=== PATIENT | female | born 1950 | race Caucasian/White ===

== ENCOUNTER 2017-04-07 11:35 | Emergency (ER) | payer MEDICARE, BC ==
--- NOTE | 2017-04-07 13:01 | RAD ---
Indication: Headache with eye drooping. CT of the brain was performed without IV contrast. Ventricular structures are midline. No midline shift is noted. The extra-axial spaces are unremarkable. There is no evidence of intracranial mass or hemorrhage. No other high or low density lesions are identified. Mastoid air cells and paranasal sinuses are unremarkable. When compared to previous exam of January 09, 2016 no significant change is noted. IMPRESSION: No intracranial mass or hemorrhage is noted.
--- NOTE | 2017-04-07 13:08 | ED ---
Headache - History Of Current Complaint Chief Complaint: EDEyeProblem Stated Complaint: RT EYE DROOP/SENT BY DR Time Seen by Provider: 04/07/17 12:24 - Allergies/Home Medications Allergies/Adverse Reactions: Allergies Allergy/AdvReac Type Severity Reaction Status Date / Time Cefaclor [From Ceclor] Allergy Diarrhea Verified 04/07/17 11:52 CI Pigment Blue 63 Allergy Diarrhea Verified 04/07/17 11:52 [From Cymbalta] Clindamycin Allergy Diarrhea Verified 04/07/17 11:52 Desvenlafaxine [From Pristiq] Allergy Unknown Verified 04/07/17 11:45 Reaction Details Duloxetine [From Cymbalta] Allergy Diarrhea Verified 04/07/17 11:52 Pregabalin [From Lyrica] Allergy Unknown Verified 04/07/17 11:45 Reaction Details Amoxicillin [From Augmentin] AdvReac Intermediate Nausea Verified 04/07/17 11:45 Clavulanic Acid AdvReac Intermediate Nausea Verified 04/07/17 11:45 [From Augmentin] PMH/Surg Hx/FS Hx/Imm Hx Endocrine/Hematology History: Reports: Hx Thyroid Disease, Hx Unexplained Bleeding - Currently Denies: Hx Anticoagulant Therapy, Hx Blood Disorders, Hx Blood Transfusions, Hx Bone Marrow Disease, Hx Diabetes, Hx Systemic Lupus Erythematosus, Hx Sickle Cell Disease, Hx Anemia, Other Endocrine/Hematological Disorders Cardiovascular History: Denies: Hx Hypercholesterolemia, Hx Hypertension, Hx Pacemaker/ICD Respiratory History: Reports: Hx Seasonal Allergies Denies: Hx Asthma, Hx Chronic Bronchitis, Hx Chronic Obstructive Pulmonary Disease (COPD), Hx Cystic Fibrosis, Hx Lung Cancer, Hx Pleural Effusion, Hx Pneumonia, Hx Pulmonary Edema, Hx Pulmonary Embolism, Hx Sleep Apnea, Other Respiratory Problems/Disorders GI History: Reports: Hx Gastrointestinal Bleed - currently; reason for admission , Other GI Disorders - Occasional severe constipation Denies: Hx Cirrhosis, Hx Crohn's Disease, Hx Diverticulosis, Hx Gall Bladder Disease, Hx Gastroesophageal Reflux Disease, Hx Hiatal Hernia, Hx Irritable Bowel, Hx Jaundice, Hx Obstructive Bowel, Hx Ileostomy, Hx Pyloric Stenosis, Hx Ulcer History: Denies: Hx Acute Renal Failure, Hx Benign Prostatic Hyperplasia, Hx Chronic Renal Failure, Hx Dialysis, Hx Kidney Stones, Hx Renal Disease, Other Problems/Disorders Comment Only: Hx Kidney Infection - Possibly while in college more than 40 years ago. Musculoskeletal History: Reports: Hx Arthritis, Hx Back Problems - congenital spinal stenosis, Hx Bursitis, Hx Fibromyalgia, Hx Orthopedic Injury - right rotator cuff tear, Hx Scoliosis - mild, Hx Tendonitis - hands and feet, Other Musculoskeletal History - chronic pain, finger joints replaced, thumbs fused, mallet finger release. Denies: Hx Congenital Bone Abnormalities, Hx Gout, Hx Osteoporosis Sensory History: Reports: Hx Cataracts - developing, Hx Contacts or Glasses, Hx Hearing Aid, Hx Hearing Problem Denies: Hx Eye Injury, Hx Eye Prosthesis, Hx Glaucoma, Hx Macular Degeneration, Hx Vision Problem, Hx Deafness, Other Sensory Impairments Opthamlomology History: Reports: Hx Cataracts - developing, Hx Contacts or Glasses Denies: Hx Eye Injury, Hx Eye Prosthesis, Hx Glaucoma, Hx Macular Degeneration, Hx Vision Problem, Other Sensory Impairments Neurological History: Reports: Hx Headaches, Hx Migraine Denies: Hx Dementia, Hx Developmental Delay, Hx Seizures, Hx Spinal Cord Injury, Hx Transient Ischemic Attacks (TIA), Other Neuro Impairments/Disorders Psychiatric History: Reports: Hx Anxiety, Hx Depression Denies: Hx Attention Deficit Hyperactivity Disorder, Hx Eating Disorder, Hx Panic Disorder, Hx Post Traumatic Stress Disorder, Hx Inpatient Treatment, Hx Community Mental Health Tx, Hx Schizophrenia, Hx Bipolar Disorder, Hx Suicide Attempt, Hx Substance Abuse, Other Psychiatric Issues/Disorders - Surgical History Surgery Procedure, Year, and Place: hand/joint surgeries x 10 - JOINT REPLACEMENTS & FUSION. lumbar laminectomy - 1999 - IN [place]. toenail surguries- [facility] Hx Anesthesia Reactions: No Infectious Disease History: No Infectious Disease History: Denies: Hx Hepatitis, Hx Human Immunodeficiency Virus (HIV), Hx Tuberculosis , Traveled Outside the [place] in Last 30 Days - Family History Known Family History: Positive: Hypertension - Social History Alcohol Use: None Substance Use Type: Reports: None Substance Use Comment - Amount & Last Used: morphine Smoking Status (MU): Never Smoked Tobacco Have You Smoked in the Last Year: No Physical Exam Vital Signs On Initial Exam: Initial Vitals Temp Pulse Resp BP Pulse Ox 98.4 F 77 16 133/65 99 04/07/17 11:45 04/07/17 11:45 04/07/17 11:45 04/07/17 11:45 04/07/17 11:45 - [place] Coma Scale Coma Scale Total: 15 Diagnostics - Vital Signs Vital Signs Temp Pulse Resp BP Pulse Ox 04/07/17 12:21 97.9 F 71 16 120/70 98 04/07/17 11:45 98.4 F 77 16 133/65 99 - Laboratory Lab Statement: Any lab studies that have been ordered have been reviewed, and results considered in the medical decision making process. - CT brain CT Interpretation: No Acute Changes - No intracranial mass or hemorrhage is noted. CT Interpretation Completed By: Radiologist Discharge - Discharge Plan Condition: Stable Disposition: HOME Patient Education Materials: Ptosis (ED) Referrals: Soni Peter MD [Primary Care Provider] - Additional Instructions: Follow up with PCP and still go to Dr Spencer appointment tomorrow. Appears to be botox related. If new symptoms occur or worsening symptoms,as discussed, please return and seek medical attention immediately.
[2017-04-07 13:42] VITALS: BP 138/64
--- NOTE | 2017-04-07 13:44 | ED ---
Throat Pain/Nasal Congestion - HPI Summary HPI Summary: 66 female presents to ED with complaints of experiencing right eye dropping that began 2 days ago. Patient states she had a typical migraine that she gets chronically 2 days ago however, resolved. She noticed 2 days ago that her right eye lid was somewhat, closed and dropping. Non painful and no itchiness, drainage, or trouble with vision. States it is sometimes hard to see because her eyelid is in the way however has not had any blurred or loss of vision. Patient denies any excessive tearing and nasal drainage on right side. Denies speech slurring and mouth drooping. No other symptoms. IS unable to lift right eyebrow/forehead muscles. Denies recent illness. No other symptoms and no headache currently. Denies nausea/vomiting, weakness, dizziness or lightheadedness. No recent trauma or injury. Patient states she has been getting botox for her migraines for years however just recently has been going to someone different, a pain clinic anesthesiologist, and since has had issues. States she has had bumps and bruises at the area of injections. She still has bruise on forehead, had botox done 2 weeks ago. States they did do the injection close to right eye and forehead and feels that is what has caused the drooping. Was told to get a CT to rule out other etiology. No other complaints at this time. PMHx significant for RA, thyroid disease, fibromyalgia and migraines. - History of Current Complaint Chief Complaint: EDEyeProblem Time Seen by Provider: 04/07/17 12:24 Hx Obtained From: Patient Onset/Duration: Sudden Onset, Lasting Days - 2, Still Present Associated Signs And Symptoms: Positive: Negative Cough: None Related History: Seasonal Allergies - Allergies/Home Medications Allergies/Adverse Reactions: Allergies Allergy/AdvReac Type Severity Reaction Status Date / Time Cefaclor [From Ceclor] Allergy Diarrhea Verified 04/07/17 11:52 CI Pigment Blue 63 Allergy Diarrhea Verified 04/07/17 11:52 [From Cymbalta] Clindamycin Allergy Diarrhea Verified 04/07/17 11:52 Desvenlafaxine [From Pristiq] Allergy Unknown Verified 04/07/17 11:45 Reaction Details Duloxetine [From Cymbalta] Allergy Diarrhea Verified 04/07/17 11:52 Pregabalin [From Lyrica] Allergy Unknown Verified 04/07/17 11:45 Reaction Details Amoxicillin [From Augmentin] AdvReac Intermediate Nausea Verified 04/07/17 11:45 Clavulanic Acid AdvReac Intermediate Nausea Verified 04/07/17 11:45 [From Augmentin] PMH/Surg Hx/FS Hx/Imm Hx Endocrine/Hematology History: Reports: Hx Thyroid Disease Denies: Hx Anticoagulant Therapy, Hx Blood Disorders, Hx Blood Transfusions, Hx Bone Marrow Disease, Hx Diabetes, Hx Systemic Lupus Erythematosus, Hx Sickle Cell Disease, Hx Anemia, Other Endocrine/Hematological Disorders Cardiovascular History: Denies: Hx Hypercholesterolemia, Hx Hypertension, Hx Pacemaker/ICD Respiratory History: Reports: Hx Seasonal Allergies Denies: Hx Asthma, Hx Chronic Bronchitis, Hx Chronic Obstructive Pulmonary Disease (COPD), Hx Cystic Fibrosis, Hx Lung Cancer, Hx Pleural Effusion, Hx Pneumonia, Hx Pulmonary Edema, Hx Pulmonary Embolism, Hx Sleep Apnea, Other Respiratory Problems/Disorders GI History: Reports: Hx Gastrointestinal Bleed - currently; reason for admission , Other GI Disorders - Occasional severe constipation Denies: Hx Cirrhosis, Hx Crohn's Disease, Hx Diverticulosis, Hx Gall Bladder Disease, Hx Gastroesophageal Reflux Disease, Hx Hiatal Hernia, Hx Irritable Bowel, Hx Jaundice, Hx Obstructive Bowel, Hx Ileostomy, Hx Pyloric Stenosis, Hx Ulcer History: Denies: Hx Acute Renal Failure, Hx Benign Prostatic Hyperplasia, Hx Chronic Renal Failure, Hx Dialysis, Hx Kidney Stones, Hx Renal Disease, Other Problems/Disorders Comment Only: Hx Kidney Infection - Possibly while in college more than 40 years ago. Musculoskeletal History: Reports: Hx Rheumatoid Arthritis, Hx Back Problems - congenital spinal stenosis, Hx Bursitis, Hx Fibromyalgia, Hx Orthopedic Injury - right rotator cuff tear, Hx Scoliosis - mild, Hx Tendonitis - hands and feet, Other Musculoskeletal History - chronic pain, finger joints replaced, thumbs fused, mallet finger release. Denies: Hx Congenital Bone Abnormalities, Hx Gout, Hx Osteoporosis Sensory History: Reports: Hx Cataracts - developing, Hx Contacts or Glasses, Hx Hearing Aid, Hx Hearing Problem Denies: Hx Eye Injury, Hx Eye Prosthesis, Hx Glaucoma, Hx Macular Degeneration, Hx Vision Problem, Hx Deafness, Other Sensory Impairments Opthamlomology History: Reports: Hx Cataracts - developing, Hx Contacts or Glasses Denies: Hx Eye Injury, Hx Eye Prosthesis, Hx Glaucoma, Hx Macular Degeneration, Hx Vision Problem, Other Sensory Impairments Neurological History: Reports: Hx Headaches, Hx Migraine Denies: Hx Dementia, Hx Developmental Delay, Hx Seizures, Hx Spinal Cord Injury, Hx Transient Ischemic Attacks (TIA), Other Neuro Impairments/Disorders Psychiatric History: Reports: Hx Anxiety, Hx Depression Denies: Hx Attention Deficit Hyperactivity Disorder, Hx Eating Disorder, Hx Panic Disorder, Hx Post Traumatic Stress Disorder, Hx Inpatient Treatment, Hx Community Mental Health Tx, Hx Schizophrenia, Hx Bipolar Disorder, Hx Suicide Attempt, Hx Substance Abuse, Other Psychiatric Issues/Disorders - Surgical History Surgery Procedure, Year, and Place: hand/joint surgeries x 10 - JOINT REPLACEMENTS & FUSION. lumbar laminectomy - 1999 - IN [place]. toenail surguries- [facility] Hx Anesthesia Reactions: No Infectious Disease History: No Infectious Disease History: Denies: Hx Hepatitis, Hx Human Immunodeficiency Virus (HIV), Hx Tuberculosis , Traveled Outside the in Last 30 Days - Family History Known Family History: Positive: Hypertension - Social History Alcohol Use: None Substance Use Type: Reports: None Substance Use Comment - Amount & Last Used: morphine Smoking Status (MU): Never Smoked Tobacco Have You Smoked in the Last Year: No Review of Systems Constitutional: Negative Positive: Other - eyelid drooping, right Cardiovascular: Negative Respiratory: Negative Musculoskeletal: Negative Positive: Headache - typical migraine, resolved All Other Systems Reviewed And Are Negative: Yes Physical Exam Triage Information Reviewed: Yes Vital Signs On Initial Exam: Initial Vitals Temp Pulse Resp BP Pulse Ox 98.4 F 77 16 133/65 99 04/07/17 11:45 04/07/17 11:45 04/07/17 11:45 04/07/17 11:45 04/07/17 11:45 Vital Signs Reviewed: Yes Appearance: Positive: Well-Appearing, No Pain Distress Skin: Positive: Warm, Skin Color Reflects Adequate Perfusion, Dry. Negative: Cold, Numb, Cyanosis @, Pale, Erythema @ Head/Face: Positive: Normal Head/Face Inspection - besides, ptosis or right eyelid, inability to raise right eyebrow or use right forhead muscles, normal rest of facial muscles. no other drooping of mouth, no excessive tearing. rest of facial muscles in tact and normal sensation, no concern for blanco's palsy, CVA or cluster headache.. Negative: Temporal Artery Tenderness, TMJ Tenderness Eyes: Positive: Normal, EOMI, BRIONNA, Conjunctiva Clear, Other: - normal fundoscopic exam and visual acuity on what was visualized, difficult to do fundoscopic. Negative: Conjunctiva Inflammed ENT: Positive: Normal ENT inspection, Hearing grossly normal, Pharynx normal, TMs normal Dental: Negative: Cervical Lymphadenopathy Neck: Positive: Supple, Nontender Respiratory/Lung Sounds: Positive: Clear to Auscultation, Breath Sounds Present. Negative: Rales, Rhonchi, Wheezes Cardiovascular: Positive: Normal, RRR, Pulses are Symmetrical in both Upper and Lower Extremities. Negative: Murmur, Rub Abdomen Description: Positive: Nontender, Soft Bowel Sounds: Positive: Present Musculoskeletal: Positive: Normal, Strength/ROM Intact - besides right frontalis and partial right orbicularis oculi muscle, limted movement due to botox. rest of MSK exam normal. Negative: Pain @ Neurological: Positive: Normal - normal neuro exam, memory and concentration intact, Sensory/Motor Intact, Alert, Oriented to Person Place, Time, CN Intact II-III, Reflexes Intact, NV Bundle Intact Distally, Normal Gait, Heel to Toe - normal, Finger to Nose - ormal, Facial Symmetry - see notes above, Speech Normal. Negative: Cerebellar Dysfunction, Facial Droop - see notes abov, Slurred Speech, [place] Psychiatric: Positive: Affect/Mood Appropriate - [place] Coma Scale Best Eye Response: 4 - Spontaneous Best Motor Response: 6 - Obeys Commands Best Verbal Response: 5 - Oriented Coma Scale Total: 15 Diagnostics - Vital Signs Vital Signs Temp Pulse Resp BP Pulse Ox 04/07/17 12:21 97.9 F 71 16 120/70 98 04/07/17 11:45 98.4 F 77 16 133/65 99 - Laboratory Lab Statement: Any lab studies that have been ordered have been reviewed, and results considered in the medical decision making process. - CT brain CT Interpretation: No Acute Changes - No intracranial mass or hemorrhage is noted CT Interpretation Completed By: Radiologist EENT Course/Dx - Course Course Of Treatment: CT brain obtained and negative. No concern for emergent etiology due to HPI, PE findings and Ct results. Appears patient is suffering from ptosis due to botox injection 03/25/17 taking full effect. Reassured. Told to follow up with botox supplier and PCP. Has appointment with Dr Spencer tomorrow also, told to keep appointment. Aware of worsening signs and symptoms. Educated on things to watch out for. Follow up and return if occur. No concern for bells palsy, cluster headache or CVA. - Differential Diagnoses Differential Diagnoses: Cellulitis, Conjunctivitis, Other - CVA, bells palsy, cluster headache, migraine, botox complication - Diagnoses Provider Diagnoses: S/P Botox injection, Ptosis, right eyelid, Ptosis of right eyebrow Discharge - Discharge Plan Condition: Stable Disposition: HOME Patient Education Materials: Ptosis (ED) Referrals: Soni Peter MD [Primary Care Provider] - Additional Instructions: Follow up with PCP and still go to Dr Spencer appointment tomorrow. Appears to be botox related. If new symptoms occur or worsening symptoms,as discussed, please return and seek medical attention immediately.
== END 2017-04-07 13:41 | disposition home or self-care (01) ==
LOC: ED 11:35
DX: H02.401 Unspecified ptosis of right eyelid (principal); R51 Headache; Z92.89 Personal history of other medical treatment
CPT/HCPCS: 70450; 99282

== ENCOUNTER → 2017-08-21 15:14 | Emergency (ER) | payer MEDICARE, BC ==
--- OUTSIDE RECORDS SUMMARY | 2017-08-21 16:08 | XMS REPORT ---
:1950 External Reference #:[id number] Author Organization [facility] [employer] Address [address] [address] Phone [phone] Care Team Providers Name Role Phone Soni Peter MD Primary Care Physician Unavailable Payers Type Date Identification Numbers Payment Provider Subscriber Medicare Primary Effective: Policy Number: Medicare Mckayla Amaya 2002 [id number] [place] PayID: [id number] [address] [place] [address] Med[employer] Part B Policy Number: [id number] BS Jose Amaya [place] PayID: [id number] [address] [address] JAYASHREE Manzo [address] [place] Effective: Policy Number: BS Jose Amaya 2011 [id number] [place] Expires: 2017 PayID: [id number] [address] [address] AnaisJAYASHREE rooney [id number] Problems Date Description Provider Status Onset: 08/01/2014 Chronic migraine without aura Roque Acevedo M.D. Active Onset: 12/06/2014 Bursitis Vinicius Egan M.D. Active Onset: 02/28/2015 Localized, primary osteoarthritis Vinicius Egan M.D. Active Onset: 02/28/2015 Sprain of knee and leg Vinicius Egan M.D. Active Onset: 01/17/2016 Closed fracture of sternal end of Anne Schwab M.D. Active clavicle Onset: 02/28/2016 Disorder of bursa of shoulder Anne Schwab M.D. Active region Onset: 07/01/2016 Trochanteric bursitis Anne Schwab M.D. Active Onset: 02/17/2017 Insomnia Sybil Robert DNP, RN, Active [employer]OLOGICAL HELPER[employer]BC Onset: 02/17/2017 Periodic limb movement disorder Sybil Robert DNP, RN, Active P[employer]ONTOLOGICAL HELPER[employer]BC Onset: 02/17/2017 Dyspnea Sybil Robert DNP, RN, Active PALEONTOLOGICAL HELPER-BC Onset: 02/17/2017 Hypersomnia Sybil Robert DNP, RN, Active PALEONTOLOGICAL HELPER-BC Onset: 08/03/2017 Arthritis suzyilajay jay Nava MD Active Family History Date Family Member(s) Problem(s) Comments General heart disease father's side - 01/01 siblings of CAD General Arthritis Father Coronary Artery Disease (CAD) Father due to CAD () - at age 52 Mother due to Natural Causes () - at age 93 Siblings None Social History Type Date Description Comments Marital Status Lives With Alone 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 Cigarette Use Never Smoked Cigarettes ETOH Use Denies alcohol use Smoking Patient has never smoked Recreational Drug Use Denies Drug Use Daily Caffeine Does Not Consume Caffeine Exercise Type/Frequency Exercises regularly Allergies, Adverse Reactions, Alerts Date Description Reaction Status Severity Comments 01/11/2013 Antibiotics active pt reports getting diarrhea 11/26/2015 Clindamycin active Moderate bright red face 11/26/2015 Cortisone active bright red face 12/16/2015 Cymbalta Nausea active 12/16/2015 Lyrica gastric problems active 12/16/2015 Pristiq active 12/16/2015 Augmentin active 12/08/2010 NKDA inactive Medications Medication Date Status Form Strength Qnty SIG Indications Ordering Provider Otezla 05/21/ Active Tablets 30mg 60tab 1 by mouth L40.50 2016 s twice a day David, (insurance M.D. override-pt 's medication was crushed upon delivery, needs new rx sent Calcipotriene 05/06/ Active Ointment 0.005% 60uni apply a G89.4 2016 ts thin layer David, to affected M.D. areas once or twice a day and rub in gently and completely Imitrex 05/04/ Active Tablets 100mg 10tab 1 tab twice Roque S. 2016 s a day as [place], needed for M.D. headache. max 2 days/wk Topiramate 06/05/ Active Tablets 100mg 45tab 1 and 1/2 Roque Chávez. 2017 s by mouth Curtis, every day M.D. Pennsaid 12/18/ Active Solution 2% 336gm apply to [place] 2017 affected Nava, area twice MD a day as needed Relpax 12/12/ Active Tablets 40mg 10tab take 1 by Erica 2016 s mouth as [place], needed for M.D. headache, may repeat after 2 hours, maximum two tablets a day, maximum 2 days a week Celebrex 12/08/ Active Capsules 100mg 60cap 1 po daily Rafael 2010 s Jevon Verdugo Nexium / Active Capsules DR 40mg 90cap 1 po bid Unknown 0000 s [place] 3 / Active Capsules 1000mg 30cap 1 po qd. Unknown 0000 s Vitamin C / Active Tablets 1000mg 30tab 1 po qd Unknown 0000 s Centrum Silver / Active Tablets 1 po qd Unknown 0000 Prednisone / Active Tablets 1mg 2 tabs po Unknown 0000 daily Singulair / Active Tablets 10mg 30tab 1 by mouth Unknown 0000 s every day Actonel / Active Tablets 30mg 1 x wk Unknown 0000 Ambien / Active Tablets 10mg 1 by mouth Unknown 0000 every night at bedtime as needed sleep insomnia Cheratussin Dac / Active Solution 30-10-100 5 ml po q Unknown 0000 mg/5ML 12h as needed for cough Epipen 2-Max / Active Solution 0.3mg/0.3 use as Unknown 0000 Auto-Inject ML directed Vitamin B 12 / Active Injectable 1000mcg sub q once Unknown 0000 a month Fiorinal / Active Capsules 50-325-40 1-2 by Unknown 0000 mg mouth every 4-6h as needed Wellbutrin XL / Active Tablets ER 300mg 1 by mouth Unknown 0000 24HR every day Xanax XR / Active Tablets ER 0.5mg 1 bid as Unknown 0000 24HR needed Prozac / Active Capsules 20mg 1 1/2 by Unknown 0000 mouth every day Vitamin D3 00/00/ Active Tablets 1 po daily Unknown 0000 Levothyroxine / Active Tablets 125mg qd Unknown Sodium 0000 Botox / Active Solution botox Unknown 0000 Rec therapy. Zyrtec Allergy 00/ Active Capsules 10mg 1 by mouth Unknown 0000 every day Fluticasone 00/ Active Suspension 50mcg/Act spray 1 Unknown Propionate 0000 spray in each nostril twice daily Atorvastatin / Active Tablets 10mg 1 by mouth Unknown Calcium 0000 every day Otezla 05/06/ Hx TBPK 10&20 55uni day1:10mg L40.50 Jayme 2016 - &30mg ts in the David, 05/21/ morning, M.D. 2016 day2:10 mg bid,day3: 10mg in the morning, 20mg at night, day4:20mg twice a day, day5: 20mg in the m Sumatriptan 03/02/ Hx Tablets 100mg 9tabs 1 by mouth Rebecca Succinate 2016 - as needed MD Rosina 05/04/ headache,ma 2017 y repeat after 2 hours as needed, max 2/d, max 2 days/wk Sulfasalazine 02/18/ Hx Tablets 500mg 42tab take one M06.4 Jayme 2015 - tab by David, 02/16/ mouth daily M.D. 2016 for 1 week then 1 tab twice daily ongoing Promethazine 08/21/ Hx Tablets 25mg 30tab 1 po q8h Roque Colón HCL 2015 - prn nausea Curtis, 11/24/ M.D. 2016 Voltaren 10/24/ Hx Gel 1% 5tube apply to 2014 - s affected Jignesh, 01/20/ area qid M.D. 2014 prn Pennsaid 10/24/ Hx Solution 1.5% 1bott use on 2014 - le affected Young, 12/18/ joint as M.D. 2017 needed twice a day Topiramate 01/10/ Hx Tablets 25mg 90tab 4 tabs po Roque SKaylin 2013 - s qhs Curtis, 12/28/ M.D. 2016 Imitrex 01/11/ Hx Tablets 100mg 10tab 1 twice a Roque S. 2012 - day as Curtis, 03/02/ needed M.D. 2017 headache max 2 d/wk Celebrex 12/08/ Hx Capsules 200mg 60cap 1 po bid Rafael 2010 - s Endo, 01/11/ M.D. 2012 Voltaren 12/08/ Hx Gel 1% 5tube apply to Rafael 2010 - s affected Endo, qid M.D. 2012 prn Flector 12/08/ Hx Patches 1.3% 60uni topical Rafael 2010 - twice a day Endo, 01/11/ M.D. 2012 Levoxyl /00/ Hx Tablets 100mcg 90tab 1 po qd Unknown 0000 - s 2013 Sumatriptan 00/00/ Hx Tablets 100mg 1 tablet Unknown Succinate 0000 - every 2 01/11/ hourly 2013 unitl relief. maximum 4 tablets daily Trazodone HCL /00/ Hx Tablets 50mg 90tab 1 tablet at Unknown 0000 - s bedtime as 2013 Zolpidem 00/00/ Hx Tablets ER 1 tab po Unknown Tartrate ER 0000 - prn 2015 Claritin /00/ Hx Tablets 10mg 30tab 1 po qd prn Unknown 0000 - s 2012 Bupropion HCL 00/00/ Hx Tablets ER 300mg 30tab 1 po qd Unknown XL 0000 - 24HR s 2015 Lipitor /00/ Hx Tablets 10mg 90tab 1 po qhs Unknown 0000 - s 2015 Topiramate /00/ Hx Tablets 100mg 60tab 1 po qhs Roque S. - s [place], 01/10/ M.D. 2013 Fluoxetine HCL /00/ Hx Capsules 20mg 90cap 1 po qd Unknown 0000 - s 2015 MS Contin 00/ Hx Tablets ER 15mg 40tab 1 po bid Unknown 0000 - 12HR s 2012 Calcium 600 + D 00/00/ Hx Tablets 600-400mg 60tab 1 po bid Unknown 0000 - -Unit s 2015 Kiana /00/ Hx Caps ER 10mg 1 tabs bid Unknown 0000 - 24HR po 2016 Morphine /00/ Hx Tablets 20mg 1 tab prn Unknown Sulfate 0000 - pain 2015 Prozac /00/ Hx Capsules 20mg 1 po qd Unknown 0000 - 2012 Amitiza 00/00/ Hx Capsules 24mcg take 1 Unknown 0000 - capsule 02/16/ 2016 [place] Thyroid 00/00/ Hx Tablets 90mg 1 PO qd Unknown 0000 - 2015 Nasonex / Hx Suspension 50mcg/Act 1Mon 1 spray emory Unknown 0000 - each side 12/10/ every day 2015 Cevimeline HCL / Hx Capsules 30mg 1 tab by Unknown 0000 - mouth three 11/25/ times a day 2015 Restasis / Hx Emulsion 0.05% as directed Unknown 0000 - 2016 Pataday / Hx Solution 0.2% 1 drop in Unknown 0000 - each eye 12/10/ once daily 2015 Advair Diskus / Hx Aerosol 250-50mcg 1 puff by Unknown 0000 - /Dose mouth twice 12/14/ a day, 2015 rinse after Temazepam / Hx Capsules 7.5mg 1 tab at at Unknown 0000 - bedtime prn 2016 Oxycodone-Aceta / Hx Tablets 5-325mg take 1 to 2 Unknown minophen 0000 - tablets by 11/19/ mouth every 2016 6 to 8 hours as needed pain Methocarbamol / Hx Tablets 500mg Unknown 0000 - 2015 Morphine / Hx Tablets 15mg 1 tab q6hrs Unknown Sulfate 0000 - prn 2016 Synvisc Or / Active Injection Anne Synvisc-One 0000 Zaheer, Injection 1 MG M.D. Synvisc Or / Active Injection Anne Synvisc-One 0000 Zaheer, Injection 1 MG M.D. Medications Administered in Office Medication Date Status Form Strength Qnty SIG Indications Ordering Provider Synvisc Or 08/06 Administered Injection Anne Synvisc-One Zaheer, Injection 1 MG M.D. Synvisc Or 08/06 Administered Injection Anne Synvisc-One Zaheer, Injection 1 MG M.D. Injection 07/06 Administered Injection Roque Eldon Onabotulinumtoxin /2016 Jose Luis Acevedo 1 Unit M.D. Depomedrol 40MG 02/26 Administered Injection Anne Jevon Schwab Depomedrol 40MG 11/20 Administered Injection Anne Jevon Schwab Depomedrol 40MG 11/20 Administered Injection Anne Jevon Schwab Depomedrol 40MG 08/14 Administered Injection Anne Jevon Schwab Depomedrol 40MG 07/01 Administered Injection Anne Jevon Schwab Injection 06/12 Administered Injection Erica Onabotulinumtoxin /2015 Jose Luis Crane, 1 Unit TELEVISION SCRIPT WRITER Hyaluron Or 05/15 Administered Injection Anne Derivative,Ortho gay Schwab,For M.D. Intra-Articular Inj Per Dose Hyaluron Or 05/15 Administered Injection Anne Derivative,Ortho gay Schwab,For M.D. Intra-Articular Inj Per Dose Hyaluron Or 05/06 Administered Injection Anne Derivative,Ortho gay Schwab,For M.D. Intra-Articular Inj Per Dose Hyaluron Or 05/06 Administered Injection Anne Derivative,Ortho gay Schwab,For M.D. Intra-Articular Inj Per Dose Hyaluron Or 04/30 Administered Injection Zaneb Derivative,Ortho gay [place]pe,For Intra-Articular Inj Per Dose Hyaluron Or 04/30 Administered Injection Zaneb Derivative,Ortho gay [place]pe,For Intra-Articular Inj Per Dose Injection 03/11 Administered Injection Roque S. Onabotulinumtoxin /2015 Jose Luis Acevedo, 1 Unit M.D. Injection 11/25 Administered Injection Roque S. Onabotulinumtoxin /2015 Jose Luis Acevedo, 1 Unit M.D. Triamcinolone 10/21 Administered Injection Yanna (Kenalog) /2015 [place], RPA-C Injection 08/21 Administered Injection Roque S. Onabotulinumtoxin /2015 Jose Luis Acevedo, 1 Unit M.D. Triamcinolone 07/15 Administered Injection Zaneb (Kenalog) /2014 MD Dell Injection 05/07 Administered Injection Roque S. Onabotulinumtoxin /2014 Jose Luis Acevedo, 1 Unit M.D. Hyaluron Or 04/23 Administered Injection Vinicius Derivative,Orthovi gay Egan,For M.D. Intra-Articular Inj Per Dose Hyaluron Or 04/16 Administered Injection Vinicius Derivative,Orthovi gay Egan,For M.D. Intra-Articular Inj Per Dose Hyaluron Or 04/09 Administered Injection Vinicius Derivative,Orthovi gay Egan,For M.D. Intra-Articular Inj Per Dose Injection 01/22 Administered Injection Roque S. Onabotulinumtoxin /2014 Jose Luis Acevedo, 1 Unit M.DKaylin Depomedrol 80MG 12/06 Administered Injection Vinicius Jevon Egan Depomedrol 80MG 11/15 Administered Injection Vinicius Jevon Egan Injection 10/16 Administered Injection Roque S. Onabotulinumtoxin /2014 Curtis A, 1 Unit M.D. Injection 08/01 Administered Injection Roque S. Onabotulinumtoxin /2014 Curtis A, 1 Unit M.D. Hyaluron Or 06/12 Administered Injection Vinicius Derivative,Ortho gay Egan,For M.D. Intra-Articular Inj Per Dose Hyaluron Or 06/12 Administered Injection Vinicius Derivative,Ortho gay Egan,For M.D. Intra-Articular Inj Per Dose Hyaluron Or 06/05 Administered Injection Judi Derivative,Ortho gay [place],For RPA-C Intra-Articular Inj Per Dose Hyaluron Or 06/05 Administered Injection Judi Derivative,Ortho gay [place],For RPA-C Intra-Articular Inj Per Dose Hyaluron Or 06/05 Administered Injection Vinicius Derivative,Ortho gay Egan,For M.D. Intra-Articular Inj Per Dose Hyaluron Or 06/05 Administered Injection Vinicius Derivative,Ortho gay Egan,For M.D. Intra-Articular Inj Per Dose Hyaluron Or 05/29 Administered Injection Vinicius Derivative,Ortho gay Egan,For M.D. Intra-Articular Inj Per Dose Hyaluron Or 05/29 Administered Injection Vinicius Derivative,Ortho gay Egan,For M.D. Intra-Articular Inj Per Dose Injection 04/17 Administered Injection Roque S. Onabotulinumtoxin /2013 Curtis A, 1 Unit M.D. Injection 04/17 Administered Injection Roque S. Onabotulinumtoxin /2013 Curtis, A, 1 Unit M.D. Injection 04/17 Administered Injection Roque S. Onabotulinumtoxin /2013 Curtis, A, 1 Unit M.D. Injection 01/10 Administered Injection Roque S. Onabotulinumtoxin /2013 Curtis, A, 1 Unit M.D. Injection 01/10 Administered Injection Roque S. Onabotulinumtoxin /2013 Curtis, A, 1 Unit M.D. Injection 10/10 Administered Injection Roque S. Onabotulinumtoxin /2013 Curtis, A, 1 Unit M.D. Injection 10/10 Administered Injection Roque S. Onabotulinumtoxin /2013 [place], A, 1 Unit M.D. Injection 07/11 Administered Injection Roque S. Onabotulinumtoxin /2012 Curtis, A, 1 Unit M.D. Injection 07/11 Administered Injection Roque S. Onabotulinumtoxin /2012 [place], A, 1 Unit M.D. Injection 04/18 Administered Injection Roque S. Onabotulinumtoxin /2012 [place], A, 1 Unit M.D. Injection 01/11 Administered Injection Roque S. Onabotulinumtoxin /2012 [place], A, 1 Unit M.D. Injection 01/11 Administered Injection Roque S. Onabotulinumtoxin /2012 [place], A, 1 Unit M.D. Injection 01/11 Administered Injection Roque S. Onabotulinumtoxin /2012 Curtis, A, 1 Unit M.D. Hyaluron Or 01/05 Administered Injection Terra Derivative,Ortho gay Bundy,For RPA-C Intra-Articular Inj Per Dose Hyaluron Or 12/29 Administered Injection Vinicius Derivative,Ortho gay Egan,For M.D. Intra-Articular Inj Per Dose Hyaluron Or 12/29 Administered Injection Vinicius Derivative,Ortho gay Egan,For M.D. Intra-Articular Inj Per Dose Hyaluron Or 12/29 Administered Injection Vinicius Derivative,Orthovi gay Egan,For M.D. Intra-Articular Inj Per Dose Hyaluron Or 12/22 Administered Injection Vinicius Derivative,Orthovi gay Egan,For M.D. Intra-Articular Inj Per Dose Hyaluron Or 12/22 Administered Injection Vinicius Derivative,Orthovi gay Egan,For M.D. Intra-Articular Inj Per Dose Hyaluron Or 12/15 Administered Injection Vinicius Derivative,Orthovi gay Egan,For M.D. Intra-Articular Inj Per Dose Injection 10/11 Administered Injection Roque S. Onabotulinumtoxin /2012 Curtis A, 1 Unit M.D. Injection 10/11 Administered Injection Roque S. Onabotulinumtoxin /2012 Jose Luis Acevedo, 1 Unit M.DKaylin Depomedrol 80MG 09/27 Administered Injection Vinicius /2012 Jevon Egan Injection 07/12 Administered Injection Roque S. Onabotulinumtoxin /2011 Jose Luis Acevedo, 1 Unit M.DKaylin Injection 07/12 Administered Injection Roque S. Onabotulinumtoxin /2011 Jose Luis Acevedo, 1 Unit M.DKaylin Celestone 3 mg and 05/20 Administered Injection Melodie 3mg /2011 Mario Elizabeth.Kong Celestone 3 mg and 05/20 Administered Injection Melodie 3mg /2011 Mario Elizabeth.Kong Injection 04/05 Administered Injection Roque S. Onabotulinumtoxin /2011 Jose Luis Acevedo, 1 Unit M.DKaylin Injection 04/05 Administered Injection Roque S. Onabotulinumtoxin /2011 Jose Luis Acevedo, 1 Unit M.DKaylin Immunizations CPT Code Status Date Vaccine Lot # [id number] Given 04/28/2016 Influenza Virus 3Yrs & Over Vital Signs Date Vital Result Comment 08/13/2017 Height 61.75 inches 5'1.75" Weight 129.00 lb per pt Heart Rate 76 /min reg BP Systolic Sitting 120 mmHg Lue BP Diastolic Sitting 84 mmHg Lue Respiratory Rate 16 /min Pain Level 6 B/L knees BMI (Body Mass Index) 23.8 kg/m2 08/06/2017 Height 61.75 inches 5'1.75" Weight 129.00 lb BP Systolic 121 mmHg BP Diastolic 74 mmHg Respiratory Rate 18 /min Pain Level 4 BMI (Body Mass Index) 23.8 kg/m2 08/03/2017 Height 61.75 inches 5'1.75" Weight 129.00 lb Heart Rate 78 /min Respiratory Rate 14 /min Body Temperature 98.3 F Pain Level 6 BMI (Body Mass Index) 23.8 kg/m2 07/06/2017 Height 61.75 inches 5'1.75" Weight 129.00 lb Heart Rate 84 /min BP Systolic 136 mmHg x2 BP Diastolic 94 mmHg x2 Respiratory Rate 14 /min BMI (Body Mass Index) 23.8 kg/m2 07/05/2017 Height 61.75 inches 5'1.75" Weight 128.00 lb BP Systolic 118 mmHg BP Diastolic 78 mmHg Body Temperature 97.4 F BMI (Body Mass Index) 23.6 kg/m2 05/06/2017 Height 61 inches 5'1" Weight 135.00 lb Heart Rate 76 /min BP Systolic Sitting 110 mmHg BP Diastolic Sitting 70 mmHg Respiratory Rate 14 /min Pain Level 9 BMI (Body Mass Index) 25.5 kg/m2 04/12/2017 Height 61 inches 5'1" Weight 135.00 lb Heart Rate 70 /min BP Systolic 120 mmHg BP Diastolic 78 mmHg Body Temperature 97.9 F BMI (Body Mass Index) 25.5 kg/m2 02/26/2017 Height 61 inches 5'1" Weight 134.00 lb BP Systolic 122 mmHg BP Diastolic 76 mmHg Respiratory Rate 20 /min Body Temperature 97.4 F Pain Level 6 BMI (Body Mass Index) 25.3 kg/m2 02/17/2017 Height 61 inches 5'1" Weight 129.00 lb Heart Rate 72 /min BP Systolic Sitting 124 mmHg BP Diastolic Sitting 84 mmHg Respiratory Rate 20 /min O2 % BldC Oximetry 98 % room air BMI (Body Mass Index) 24.4 kg/m2 Neck Circumference in inches 13.5 12/28/2016 Height 61 inches 5'1" Weight 128.00 lb Heart Rate 80 /min BP Systolic Sitting 122 mmHg BP Diastolic Sitting 82 mmHg Respiratory Rate 15 /min BMI (Body Mass Index) 24.2 kg/m2 11/20/2016 Height 61 inches 5'1" Weight 134.00 lb Respiratory Rate 16 /min Pain Level 8 BMI (Body Mass Index) 25.3 kg/m2 08/14/2016 Height 61 inches 5'1" Weight 134.00 lb Respiratory Rate 19 /min Pain Level 9 BMI (Body Mass Index) 25.3 kg/m2 07/01/2016 Height 61 inches 5'1" Weight 134.00 lb Heart Rate 94 /min BP Systolic 130 mmHg BP Diastolic 73 mmHg BMI (Body Mass Index) 25.3 kg/m2 06/24/2016 Height 61 inches 5'1" Respiratory Rate 18 /min Body Temperature 97.8 F Pain Level 8 06/12/2016 Height 61 inches 5'1" Weight 134.00 lb Heart Rate 78 /min BP Systolic Sitting 128 mmHg BP Diastolic Sitting 74 mmHg BMI (Body Mass Index) 25.3 kg/m2 05/15/2016 Height 61 inches 5'1" Weight 134.00 lb Heart Rate 60 /min Respiratory Rate 16 /min Pain Level 3 BMI (Body Mass Index) 25.3 kg/m2 05/06/2016 Height 61 inches 5'1" Weight 134.00 lb Pain Level 2 BMI (Body Mass Index) 25.3 kg/m2 04/30/2016 Height 61 inches 5'1" Weight 134.00 lb Respiratory Rate 16 /min Pain Level 6 BMI (Body Mass Index) 25.3 kg/m2 04/07/2016 Height 61 inches 5'1" Weight 134.00 lb Heart Rate 60 /min Respiratory Rate 16 /min Pain Level 6 BMI (Body Mass Index) 25.3 kg/m2 03/11/2016 Height 61 inches 5'1" Weight 134.00 lb Heart Rate 72 /min BP Systolic Sitting 120 mmHg BP Diastolic Sitting 70 mmHg Respiratory Rate 17 /min BMI (Body Mass Index) 25.3 kg/m2 03/03/2016 Height 61 inches 5'1" Weight 134.00 lb Heart Rate 86 /min BP Systolic Sitting 110 mmHg BP Diastolic Sitting 64 mmHg Respiratory Rate 18 /min O2 % BldC Oximetry 96 % BMI (Body Mass Index) 25.3 kg/m2 02/28/2016 Height 61 inches 5'1" Weight 134.00 lb BMI (Body Mass Index) 25.3 kg/m2 02/19/2016 Height 61 inches 5'1" Weight 134.00 lb Heart Rate 72 /min BP Systolic Sitting 128 mmHg BP Diastolic Sitting 82 mmHg Respiratory Rate 14 /min Body Temperature 99.5 F Pain Level 4 L hip BMI (Body Mass Index) 25.3 kg/m2 01/31/2016 Height 61 inches 5'1" Weight 134.00 lb Pain Level 6 BMI (Body Mass Index) 25.3 kg/m2 01/17/2016 Height 61 inches 5'1" Weight 134.00 lb Heart Rate 79 /min BP Systolic 94 mmHg BP Diastolic 62 mmHg Pain Level 8 BMI (Body Mass Index) 25.3 kg/m2 12/16/2015 Height 61 inches 5'1" Weight 139.00 lb Heart Rate 82 /min BP Systolic Sitting 112 mmHg LA< reg BP Diastolic Sitting 84 mmHg LA< reg BMI (Body Mass Index) 26.3 kg/m2 11/26/2015 Height 61 inches 5'1" Weight 135.00 lb Heart Rate 80 /min BP Systolic Sitting 124 mmHg BP Diastolic Sitting 82 mmHg Respiratory Rate 16 /min BMI (Body Mass Index) 25.5 kg/m2 11/05/2015 Height 61 inches 5'1" Weight 139.00 lb Heart Rate 96 /min BP Systolic Sitting 128 mmHg BP Diastolic Sitting 74 mmHg Pain Level 7 BMI (Body Mass Index) 26.3 kg/m2 10/29/2015 Height 61 inches 5'1" Weight 128.00 lb Pain Level 6 BMI (Body Mass Index) 24.2 kg/m2 10/22/2015 Height 61 inches 5'1" Weight 128.00 lb Pain Level 7 BMI (Body Mass Index) 24.2 kg/m2 08/21/2015 Height 61 inches 5'1" Weight 129.00 lb Heart Rate 68 /min BP Systolic Sitting 108 mmHg BP Diastolic Sitting 80 mmHg Respiratory Rate 14 /min BMI (Body Mass Index) 24.4 kg/m2 07/15/2015 Height 61 inches 5'1" Weight 128.00 lb BMI (Body Mass Index) 24.2 kg/m2 05/07/2015 Height 61 inches 5'1" Weight 128.00 lb Heart Rate 80 /min BP Systolic Sitting 112 mmHg BP Diastolic Sitting 82 mmHg Respiratory Rate 14 /min BMI (Body Mass Index) 24.2 kg/m2 04/23/2015 Height 61 inches 5'1" Weight 128.00 lb Pain Level 4 BMI (Body Mass Index) 24.2 kg/m2 04/16/2015 Height 61 inches 5'1" Weight 128.00 lb Pain Level 0 BMI (Body Mass Index) 24.2 kg/m2 04/09/2015 Height 61 inches 5'1" Weight 128.00 lb Pain Level 3 BMI (Body Mass Index) 24.2 kg/m2 02/28/2015 Height 61 inches 5'1" Weight 128.00 lb Pain Level 4 BMI (Body Mass Index) 24.2 kg/m2 02/19/2015 Height 61 inches 5'1" Weight 128.00 lb Pain Level 8 BMI (Body Mass Index) 24.2 kg/m2 01/22/2015 Height 61 inches 5'1" Heart Rate 68 /min BP Systolic Sitting 122 mmHg BP Diastolic Sitting 76 mmHg Respiratory Rate 16 /min 12/06/2014 Height 61 inches 5'1" Weight 128.00 lb Pain Level 8 BMI (Body Mass Index) 24.2 kg/m2 11/15/2014 Height 61 inches 5'1" Weight 128.00 lb Body Temperature 97.0 F Pain Level 8 BMI (Body Mass Index) 24.2 kg/m2 10/16/2014 Height 61 inches 5'1" Heart Rate 64 /min BP Systolic Sitting 120 mmHg BP Diastolic Sitting 70 mmHg Respiratory Rate 16 /min 08/01/2014 Height 61 inches 5'1" Weight 139.00 lb Heart Rate 64 /min BP Systolic Sitting 126 mmHg BP Diastolic Sitting 72 mmHg Respiratory Rate 16 /min BMI (Body Mass Index) 26.3 kg/m2 06/12/2014 Height 61 inches 5'1" Weight 128.00 lb BMI (Body Mass Index) 24.2 kg/m2 06/05/2014 Height 61 inches 5'1" Weight 128.00 lb Heart Rate 64 /min BMI (Body Mass Index) 24.2 kg/m2 05/29/2014 Height 61 inches 5'1" Weight 128.00 lb Pain Level 5 BMI (Body Mass Index) 24.2 kg/m2 04/17/2014 Height 61 inches 5'1" Weight 128.00 lb Heart Rate 64 /min BP Systolic Sitting 128 mmHg BP Diastolic Sitting 68 mmHg Respiratory Rate 16 /min BMI (Body Mass Index) 24.2 kg/m2 01/23/2014 Height 61 inches 5'1" Heart Rate 80 /min BP Systolic 106 mmHg BP Diastolic 77 mmHg 01/10/2014 Height 61 inches 5'1" Weight 128.00 lb Heart Rate 80 /min BP Systolic Sitting 120 mmHg BP Diastolic Sitting 80 mmHg Respiratory Rate 16 /min BMI (Body Mass Index) 24.2 kg/m2 10/10/2013 Heart Rate 67 /min BP Systolic Sitting 110 mmHg BP Diastolic Sitting 60 mmHg Respiratory Rate 16 /min 01/11/2013 Height 61 inches 5'1" Weight 136.00 lb Heart Rate 76 /min BP Systolic 112 mmHg BP Diastolic 70 mmHg Respiratory Rate 12 /min BMI (Body Mass Index) 25.7 kg/m2 12/08/2010 Height 61 inches 5'1" Weight 122.00 lb Heart Rate 80 /min BP Systolic 120 mmHg BP Diastolic 80 mmHg BMI (Body Mass Index) 23.0 kg/m2 Results Test Date Test Result H/L Range Note Xray 08/03/2017 Hand Bilateral <pending> CBC Auto Diff 02/17/2017 White Blood Count 7.4 10^3/uL 3.5-10.8 Red Blood Count 4.21 10^6/uL 4.0-5.4 Hemoglobin 13.6 g/dL 12.0-16.0 Hematocrit 41 % 35-47 Mean Corpuscular Volume 97 fL 80-97 Mean Corpuscular Hemoglobin 32 pg High 27-31 Mean Corpuscular HGB Conc 33 g/dL 31-36 Red Cell Distribution Width 13 % 10.5-15 Platelet Count 263 10^3/uL 150-450 Mean Platelet Volume 8 um3 7.4-10.4 Abs Neutrophils 4.9 10^3/uL 1.5-7.7 Abs Lymphocytes 1.7 10^3/uL 1.0-4.8 Abs Monocytes 0.6 10^3/uL 0-0.8 Abs Eosinophils 0.1 10^3/uL 0-0.6 Abs Basophils 0 10^3/uL 0-0.2 Abs Nucleated RBC 0 10^3/uL Granulocyte % 66.1 % 38-83 Lymphocyte % 23.0 % Low 25-47 Monocyte % 8.4 % 1-9 Eosinophil % 1.8 % 0-6 Basophil % 0.7 % 0-2 Nucleated Red Blood Cells % 0 Laboratory test finding 02/17/2017 Ferritin 29.9 ng/mL 11-307 Iron & Iron Binding Capacity 02/17/2017 Iron 83 g/dL 50-212 Unsaturated Iron Binding 273 g/dL Total Iron Binding Capacity 356 g/dL 250-450 % Iron Saturation 23 % 15-55 Laboratory test finding 02/17/2017 Vitamin B12 401 pg/mL 180-914 1 Laboratory test finding 01/08/2016 C Reactive Protein 4.15 mg/L < 5.00 2 Angiotensin Converting Enzyme 40 U/L 8 - 53 3 Cyclic Citrullinated Pep Igg <15.6 U 4 Erythrocyte Sed Rate 34 mm/Hr 0-40 5 Celiac Hla DQ1/DQ2 01/08/2016 Hla-Dqa1 SEE BELOW 6 Hla-DQB1 SEE BELOW 7 Celiac Gene Pairs Present? Equivocal Celiac Gene Interpretation See Comment 8 Laboratory test 01/08/2016 Vitamin D, 1,25 Dihydroxy 64 pg/mL 18-78 9 finding Celiac Panel 01/08/2016 Tissue Transglutaminase IgA <1.2 U/mL 10 Ab Immunoglobulin A 321 mg/dL 61 - 356 Celiac Interpretation See Comment 11 Laboratory test finding 01/08/2016 Cyclic Citrullinated Pep Igg <15.6 U 12 Hla B27 01/08/2016 Hla B27 Negative 13 Hla B27 Interp See Comment 14 Laboratory test finding 01/08/2016 Anti Ssa/Ro Antibody <0.2 U 15 SS-B/La Antibody <0.2 U 16 Lyme Disease Serology Negative Negative 17 Scleroderma AB (SCL70) 01/08/2016 Scleroderma Ab <0.2 U 18 Hla B27 01/08/2016 Hla B27 Negative 19 Hla B27 Interp See Comment 20 Laboratory test finding 01/08/2016 Lyme Disease Serology Negative Negative 21 Rheumatoid Factor <15 IU/mL <15 22 Uric Acid 5.1 mg/dL 2.3-6.6 23 Vitamin D 1,25 And Vitamin 01/08/2016 Vitamin D Total 25(Oh) 45.8 ng/mL 30-50 24 D,2 Vitamin D, 1,25 Dihydroxy 64 pg/mL 18-78 25 Celiac Panel 01/08/2016 Tissue Transglutaminase IgA Ab <1.2 U/mL 26 Immunoglobulin A 321 mg/dL 61 - 356 Celiac Interpretation See Comment 27 Celiac Hla DQ1/DQ2 01/08/2016 Hla-Dqa1 SEE BELOW 28 Hla-DQB1 SEE BELOW 29 Celiac Gene Pairs Present? Equivocal Celiac Gene Interpretation See Comment 30 Laboratory test finding 01/08/2016 Anti Ssa/Ro <0.2 U 31 Anti SSB LA <0.2 U 32 Scleroderma AB (SCL70) 01/08/2016 Scleroderma Ab <0.2 U 33 Laboratory test finding 01/08/2016 TSH (Thyroid Stim Horm) 0.55 ?IU/mL 0.34-5.60 34 Laboratory test finding 01/08/2016 Uric Acid 5.1 mg/dL 2.3-6.6 35 C Reactive Protein 4.15 mg/L < 5.00 36 TSH (Thyroid Stim Horm) 0.55 ?IU/mL 0.34-5.60 37 Vitamin D Total 25(Oh) 45.8 ng/mL 30-50 38 Erythrocyte Sed Rate 34 mm/Hr 0-40 39 Angiotension Converting Enzyme 40 U/L 8 - 53 40 Rheumatoid Factor <15 IU/mL <15 41 Laboratory test finding 01/08/2016 Magnesium 2.2 mg/dL 1.9-2.7 Laboratory test finding 01/08/2016 Free T4 (Free 0.56 ng/dL Low 0.61-1.12 Thyroxine) Vitamin B12 813 pg/mL 180-914 42 Lipid Profile (Trig/Chol/HDL) 01/08/2016 Triglycerides 73 mg/dL 43 Cholesterol 187 mg/dL 44 HDL Cholesterol 77.2 mg/dL 45 LDL Cholesterol 95 mg/dL 46 Comp Metabolic Panel 01/08/2016 Sodium 137 mmol/L 133-145 Potassium 4.6 mmol/L 3.5-5.0 Chloride 100 mmol/L Low 101-111 Co2 Carbon Dioxide 30 mmol/L 22-32 Anion Gap 7 mmol/L 2-11 Glucose 84 mg/dL 70-100 Blood Urea Nitrogen 15 mg/dL 6-24 Creatinine 0.91 mg/dL 0.51-0.95 BUN/Creatinine Ratio 16.5 8-20 Calcium 9.8 mg/dL 8.6-10.3 Total Protein 7.2 g/dL 6.4-8.9 Albumin 4.5 g/dL 3.2-5.2 Globulin 2.7 g/dL 2-4 Albumin/Globulin Ratio 1.7 1-3 Total Bilirubin 0.30 mg/dL 0.2-1.0 Alkaline Phosphatase 67 U/L 34-104 Alt 23 U/L 7-52 Ast 23 U/L 13-39 Egfr Non- 61.9 >60 Egfr 79.5 >60 47 Laboratory test finding 01/08/2016 Magnesium 2.2 mg/dL 1.9-2.7 CBC Auto Diff 01/08/2016 White Blood Count 7.0 10^3/uL 3.5-10.8 Red Blood Count 4.27 10^6/uL 4.0-5.4 Hemoglobin 13.8 g/dL 12.0-16.0 Hematocrit 41 % 35-47 Mean Corpuscular Volume 97 fL 80-97 Mean Corpuscular Hemoglobin 32 pg High 27-31 Mean Corpuscular HGB Conc 33 g/dL 31-36 Red Cell Distribution Width 13 % 10.5-15 Platelet Count 330 10^3/uL 150-450 Mean Platelet Volume 8 um3 7.4-10.4 Abs Neutrophils 4.8 10^3/uL 1.5-7.7 Abs Lymphocytes 1.5 10^3/uL 1.0-4.8 Abs Monocytes 0.6 10^3/uL 0-0.8 Abs Eosinophils 0.1 10^3/uL 0-0.6 Abs Basophils 0.1 10^3/uL 0-0.2 Abs Nucleated RBC 0 10^3/uL Granulocyte % 68.5 % 38-83 Lymphocyte % 21.3 % Low 25-47 Monocyte % 8.6 % 1-9 Eosinophil % 0.9 % 0-6 Basophil % 0.7 % 0-2 Nucleated Red Blood Cells % 0.1 Urinalysis Profile 01/08/2016 Urine Color Straw Urine Appearance Clear Urine Specific [place] 1.006 Low 1.010-1.030 Urine pH 5.0 5-9 Urine Urobilinogen Negative Negative Urine Ketones Negative Negative Urine Protein Negative Negative Urine Leukocytes Negative Negative Urine Blood Negative Negative Urine Nitrite Negative Negative Urine Bilirubin Negative Negative Urine Glucose Negative Negative 1 Normal Range 180 to 914 Indeterminate Range 145 to 180 Deficient Range <145 2 Acute inflammation: >10.00 3 Test Performed by: [place] [address] Physician Assistant Primary Care: Cosmo Arriola II, M.D., Ph.D. 4 REFERENCE VALUE <20.0 (Negative) Test Performed by: [place] [address] Physician Assistant Primary Care: Cosmo Arriola II, M.D., Ph.D. 5 this week please 6 RESULT: 01:03,02:01 REFERENCE VALUE Not Applicable 7 RESULT: 02:02,06:03 DQ Serologic Equivalent: 2,6 REFERENCE VALUE Not Applicable 8 While the patient lacks the gene pairs usually seen in celiac disease, there are rare exceptions in which celiac disease can occur with only one half of the gene pair (1% of all celiac) making celiac disease very unlikely. However, these genes can also be present in the normal population. ADDITIONAL INFORMATION Method: Molecular typing of HLA antigens performed using reverse SSOP and/or SSP methods, reported as serological equivalents and low to medium resolution molecular values. Performing Laboratory CLIA# [id number] Test Performed by: [place] [address] Physician Assistant Primary Care: Cosmo Arriola II, M.D., Ph.D. 9 Test Performed by: [place] [address] Physician Assistant Primary Care: Cosmo Arriola II, M.D., Ph.D. 10 REFERENCE VALUE <4.0 (Negative) Test Performed by: [place] [address] Physician Assistant Primary Care: Cosmo Arriola II, M.D., Ph.D. 11 Negative serology. Celiac disease unlikely. However, approximately 10% of patients with celiac disease are seronegative. Also, patients who are already adhering to a gluten-free diet may be seronegative. If celiac disease is highly clinically suspected, consider HLA-DQ typing. Test Performed by: [place] [address] Physician Assistant Primary Care: Cosmo Arriola II, M.D., Ph.D. 12 REFERENCE VALUE <20.0 (Negative) Test Performed by: [place] [address] Physician Assistant Primary Care: Cosmo Arriola II, M.D., Ph.D. 13 REFERENCE VALUE Not Applicable 14 RESULT: HLA-B27 antigen was not detected. ADDITIONAL INFORMATION Method: Flow Cytometry Performing Laboratory IA# [id number] Test Performed by: [place] [address] Physician Assistant Primary Care: Cosmo Arriola II, M.D., Ph.D. 15 REFERENCE VALUE <1.0 (Negative) Test Performed by: [place] [address] Physician Assistant Primary Care: Cosmo Arriola II, M.D., Ph.D. 16 REFERENCE VALUE <1.0 (Negative) Test Performed by: [place] [address] Physician Assistant Primary Care: Cosmo Arriola II, M.D., Ph.D. 17 Serologic response to B. burgdorferi infection is not detected, but cannot rule out early infection during which low or undetectable antibody levels to B. burgdorferi may be present. If clinically indicated, a new serum specimen should be submitted in 7-14 days. Test Performed by: [place] [address] Physician Assistant Primary Care: Cosmo Arriola II, M.D., Ph.D. 18 REFERENCE VALUE <1.0 (Negative) Test Performed by: [place] [address] Physician Assistant Primary Care: Cosmo Arriola II, M.D., Ph.D. 19 REFERENCE VALUE Not Applicable 20 RESULT: HLA-B27 antigen was not detected. ADDITIONAL INFORMATION Method: Flow Cytometry Performing Laboratory CLIA# [id number] Test Performed by: [place] [address] Physician Assistant Primary Care: Cosmo Arriola II, M.D., Ph.D. 21 Serologic response to B. burgdorferi infection is not detected, but cannot rule out early infection during which low or undetectable antibody levels to B. burgdorferi may be present. If clinically indicated, a new serum specimen should be submitted in 7-14 days. Test Performed by: [place] [address] Physician Assistant Primary Care: Cosmo Arriola II, M.D., Ph.D. 22 Test Performed by: [place] [address] Physician Assistant Primary Care: Cosmo Arriola II, M.D., Ph.D. 23 this week please 24 this week please 25 Test Performed by: [place] [address] Physician Assistant Primary Care: Cosmo Arriola II, M.D., Ph.D. 26 REFERENCE VALUE <4.0 (Negative) Test Performed by: [place] [address] Physician Assistant Primary Care: Cosmo Arriola II, M.D., Ph.D. 27 Negative serology. Celiac disease unlikely. However, approximately 10% of patients with celiac disease are seronegative. Also, patients who are already adhering to a gluten-free diet may be seronegative. If celiac disease is highly clinically suspected, consider HLA-DQ typing. Test Performed by: [place] [address] Physician Assistant Primary Care: Cosmo Arriola II, M.D., Ph.D. 28 RESULT: 01:03,02:01 REFERENCE VALUE Not Applicable 29 RESULT: 02:02,06:03 DQ Serologic Equivalent: 2,6 REFERENCE VALUE Not Applicable 30 While the patient lacks the gene pairs usually seen in celiac disease, there are rare exceptions in which celiac disease can occur with only one half of the gene pair (1% of all celiac) making celiac disease very unlikely. However, these genes can also be present in the normal population. ADDITIONAL INFORMATION Method: Molecular typing of HLA antigens performed using reverse SSOP and/or SSP methods, reported as serological equivalents and low to medium resolution molecular values. Performing Laboratory CLIA# [id number] Test Performed by: [place] [address] Physician Assistant Primary Care: Cosmo Arriola II, M.D., Ph.D. 31 REFERENCE VALUE <1.0 (Negative) Test Performed by: [place] [address] Physician Assistant Primary Care: Cosmo Arriola II, M.D., Ph.D. 32 REFERENCE VALUE <1.0 (Negative) Test Performed by: [place] [address] Physician Assistant Primary Care: Cosmo Arriola II, M.D., Ph.D. 33 REFERENCE VALUE <1.0 (Negative) Test Performed by: [place] [address] Physician Assistant Primary Care: Cosmo Arriola II, M.D., Ph.D. 34 this week please 35 this week please 36 Acute inflammation: >10.00 37 this week please 38 this week please 39 this week please 40 Test Performed by: [place] [address] Physician Assistant Primary Care: Cosmo Arriola II, M.D., Ph.D. 41 Test Performed by: [place] [address] Physician Assistant Primary Care: Cosmo Arriola II, M.D., Ph.D. 42 Normal Range 180 to 914 Indeterminate Range 145 to 180 Deficient Range <145 43 Desirable <150 Borderline high 150-199 High 200-499 Very High >500 44 Desirable <200 Borderline high 200-239 High >239 45 Low <40 Desirable: 40-60 High: >60 46 Desirable: <100 mg/dL Near Optimal: 100-129 mg/dL Borderline High: 130-159 mg/dL High: 160-189 mg/dL Very High: >189 mg/dL 47 Because ethnic data is not always readily available, this report includes an eGFR for both -Americans and non- Americans. The National Kidney Disease Education Program (NKDEP) does not endorse the use of the MDRD equation for patients that are not between the ages of 18 and 70, are , have extremes of body size, muscle mass, or nutritional status, or are non- or non-. According to the National Kidney Foundation, irrespective of diagnosis, the stage of the disease is based on the level of kidney function: Stage Description GFR(mL/min/1.73 m(2)) 1 Kidney damage with normal or decreased GFR 90 2 Kidney damage with mild decrease in GFR 60-89 3 Moderate decrease in GFR 30-59 4 Severe decrease in GFR 15-29 5 Kidney failure <15 (or dialysis) Procedures Date CPT Code Description Status Comment 08/13/201769484 Inject/Drain Joint/Bursa Major Completed 08/13/201796890 Inject/Drain Joint/Bursa Major Completed 08/06/201773564 Inject/Drain Joint/Bursa Major Completed 07/06/2017 99092 Chemodenervation Of Muscles Innervated By Completed Facial Nerves, Bilat 02/26/201792101 Inject/Drain Joint/Bursa Major Completed 11/20/201678551 Inject/Drain Joint/Bursa Major Completed 11/20/201664272 Inject/Drain Joint/Bursa Major Completed 08/14/201680558 Inject/Drain Joint/Bursa Major Completed 07/01/201685561 Inject/Drain Joint/Bursa Major Completed 06/12/2016 21870 Chemodenervation Of Muscles Innervated By Completed Facial Nerves, Bilat 05/15/201656290 Inject/Drain Joint/Bursa Major Completed 05/06/201688445 Inject/Drain Joint/Bursa Major Completed 04/30/201609641 Inject/Drain Joint/Bursa Major Completed 03/11/2016 39661 Chemodenervation Of Muscles Innervated By Completed Facial Nerves, Bilat 01/17/2016 74576 Closed TRTMT Clavicular Fracture Completed 12/16/2015 45494 EKG Tracing & Interpretation Completed 11/26/2015 11563 Chemodenervation Of Muscles Innervated By Completed Facial Nerves, Bilat 10/22/201527748 Inject/Drain Joint/Bursa Major Completed 08/21/2015 57731 Chemodenervation Of Muscles Innervated By Completed Facial Nerves, Bilat 07/15/201505678 Inject/Drain Joint/Bursa Major Completed 05/07/2015 20900 Chemodenervation Of Muscles Innervated By Completed Facial Nerves, Bilat 04/23/201554414 Inject/Drain Joint/Bursa Major Completed 04/16/201585516 Inject/Drain Joint/Bursa Major Completed 04/09/2015 Inject/Drain Joint/Bursa Major Completed 01/22/2015 09488 Chemodenervation Of Muscles Innervated By Completed Facial Nerves, Bilat 12/06/2014 Inject/Drain Joint/Bursa Major Completed 11/15/2014 Inject/Drain Joint/Bursa Major Completed 10/16/2014 90749 Chemodenervation Of Muscles Innervated By Completed Facial Nerves, Bilat 08/01/2014 89919 Chemodenervation Of Muscles Innervated By Completed Facial Nerves, Bilat 06/12/201466532 Inject/Drain Joint/Bursa Major Completed 06/05/2014 Inject/Drain Joint/Bursa Major Completed 06/05/2014 Inject/Drain Joint/Bursa Major Completed 06/05/2014 Inject/Drain Joint/Bursa Major Completed 05/29/2014 Inject/Drain Joint/Bursa Major Completed RT 04/17/2014 91109 Chemodenervation Of Muscles Innervated By Completed Facial Nerves, Bilat 01/23/2014 39678 Xray Knee 3 Views Completed 01/23/2014 32507 Rad Exam; Knee, Ap&L Completed 01/10/2014 81384 Chemodenervation Of Muscles Innervated By Completed Facial Nerves, Bilat 10/10/2013 29855 Chemodenervation Of Muscles Innervated By Completed Facial Nerves, Bilat 07/11/2013 88579 Chemodenervation Of Muscles Innervated By Completed Facial Nerves, Bilat 04/18/2013 52984 Chemodenervation Of Muscles Innervated By Completed Facial Nerves, Bilat 01/11/2013 70882 Chemodenervation Of Muscles Innervated By Completed Facial Nerves, Bilat 01/05/201310779 Inject/Drain Joint/Bursa Major Completed 12/29/2012 Inject/Drain Joint/Bursa Major Completed 12/29/2012 Inject/Drain Joint/Bursa Major Completed 12/22/2012 Inject/Drain Joint/Bursa Major Completed 12/22/2012 Inject/Drain Joint/Bursa Major Completed 12/15/2012 Inject/Drain Joint/Bursa Major Completed 10/11/2012 91213 Chemodenervation Of Muscles Innervated By Completed Facial Nerves, Bilat 09/27/2012 94416 Xray Knee 3 Views Completed 09/27/2012 87572 Xray Knee 3 Views Completed 09/27/2012 39879 Rad Exam; Knee, Ap&L Completed 09/27/2012 71047 Rad Exam; Knee, Ap&L Completed 09/27/2012 14296 Inject/Drain Joint/Bursa Major Completed 09/06/2012 86219 Excision Tendon Sheath Ganglion /Or Joint Completed Capsule Hand Or Finger 09/06/2012 53343 Excision Tendon Sheath Ganglion /Or Joint Completed Capsule Hand Or Finger 09/06/2012 00248 Inject/Drain Joint/Bursa Small Completed 07/12/2012 87470 Destruction W/Neurolytic Agent,Neck Muscles Completed 07/12/2012 69774 Destruction W/Neurolytic Agent, Facial Nerve Completed Muscle, Unilateral 05/20/2012 29073 Rad Exam; Fingers Completed 05/20/201286618 Inject/Drain Joint/Bursa Small Completed 04/05/2012 01736 Destruction W/Neurolytic Agent,Neck Muscles Completed 04/05/2012 11232 Destruction W/Neurolytic Agent, Facial Nerve Completed Muscle, Unilateral Encounters Type Date Location Provider CPT E/M Dx Office Visit 07/05/2017 [facility] Anne Schwab M.D. 47541 M25.561 11:30a Of [facility] M25.562 M25.461 M25.462 M17.0 Office Visit 05/06/2017 1:00p [facility] Jayme Hernandez, 36368 L40.50 Of [facility] Escoto Z79.899 M19.049 G89.4 Office Visit 04/12/2017 10:45a [facility] Of Anne Schwab M.D. 98061 M25.562 C.M.A. M17.12 W19.xxxA Office Visit 02/26/2017 1:30p [facility] Of Anne Schwab M.D. 48190 M25.562 C.M.A. M25.462 M17.12 M25.552 M70.62 M25.511 M70.61 Office Visit 02/17/2017 11:15a [facility] Sybil Robert, 20825 G89.4 Services Of [facility] LEN, RN, PALEONTOLOGICAL HELPER-BC G47.61 G47.63 G47.00 G47.10 R06.83 R06.81 Office Visit 12/28/2016 3:30p [facility] Roque Acevedo, 09053 G43.019 Services Of Destini M.DKaylin Office Visit 11/20/2016 9:15a [facility] Anne Schwab M.D. 58730 M25.562 Of C.MKaycee M25.462 M17.12 M25.552 M70.62 Office Visit 06/24/2016 10:00a [facility] Of Anne Schwab M.D. 02738 M79.1 C.M.A. Office Visit 04/07/2016 2:00p [facility] [place] [address] M75.51 C.M.A. M17.0 Office Visit 02/19/2016 3:20p [facility] Services Of Jayme Balderasdor, 12179 M06.4 Destini Escoto M70.62 L30.9 M17.0 Office Visit 12/16/2015 2:00p [facility] Lorenzo Peters, 99205 R00.2 M.DKaylin R55 R06.02 R94.31 E78.4 R53.83 Office Visit 11/05/2015 1:00p [facility] Of Jayme Balderasdor, 15366 M06.4 Destini Martin.Kong M89.8x4 M70.62 M17.0 L13.0 M35.01 Office Visit 10/29/2015 3:20p [facility] Of Yannasyed Grewal, 23949 M70.61 C.M.A. RPA-C M70.62 M76.32 Office Visit 10/22/2015 2:30p [facility] Of Yannasyed Grewal, 08167 M70.61 C.M.A. RPA-C M70.62 M76.32 Office Visit 08/21/2015 3:00p [facility] Roque Acevedo, 25414 G43.019 Services Of Destini M.Kong Office Visit 07/15/2015 10:00[place] [address] M70.61 Of C.M.A. M70.62 Office Visit 02/28/2015 9:40a [facility] Of Vinicius Egan M.D. 38781 715.16 C.M.A. 844.9 Office Visit 02/19/2015 10:30a [facility] Of Yanna Grewal 00986 717.40 C.M.A. RPA-C Office Visit 11/15/2014 9:15a [facility] Of Vinicius Egan M.D. 56106 726.5 C.M.A. Office Visit 01/23/2014 10:30a [facility] Of Vinicius Eagn M.D. 43895 715.16 C.M.A. Office Visit 04/18/2013 2:00p [facility] Roque Acevedo, 10922 346.11 Services Of Destini M.DKaylin Office Visit 03/08/2013 10:00a [facility] Of Melodie 17169 715.94 C.M.AKaylin Sanchez M.D. Office Visit 02/24/2013 2:30p [facility] Of Vinicius Egan M.D. 78662 716.96 C.M.A. Office Visit 02/07/2013 10:15a [facility] Of [place]ie 23044 727.40 C.M.AKaylin Sanchez M.D. Office Visit 01/11/2013 2:00p [facility] Roque Acevedo, 95470 346.11 Services Of Destini M.DKaylin Office Visit 01/05/2013 11:30a [facility] Of Terra Bundy RPA-C 56259 716.96 C.M.A. 715.36 Office Visit 12/15/2012 2:00p [facility] Of Vinicius Egan M.D. 52619 715.36 C.M.A. Office Visit 11/15/2012 2:30p [facility] Of Vinicius Egan M.D. 54257 715.36 C.M.A. Office Visit 10/11/2012 3:00p [facility] Roque Acevedo, 14757 346.11 Services Of Destini M.D. Office Visit 09/27/2012 9:15a [facility] Of Vinicius Egan M.D. 59455 715.36 C.M.A. Office Visit 09/18/2012 9:03a [facility], Roque Parra 01413 578.9 Hospitalists Jveon Adams 787.91 780.2 Office Visit 09/16/2012 9:00a [facility], Alvaro Callejas.Gerald 47891 578.9 Hospitalists 787.91 780.2 Office Visit 07/12/2012 3:00p [facility] Roque Acevedo, 68131 346.11 Services Of Destini Escoto Office Visit 05/20/2012 8:00a [facility] Of Melodie 38126 715.94 Rachel Sanchez M.D. Office Visit 12/08/2010 2:20p Rheumatology Services Rafael Verdugo 15374 719.40 Of Destini Escoto 782.8 795.79 721.0 721.3 729.1 Office Visit 01/08/2010 12:15a [facility], Moises Lopez, 55563 527.2 Hospitalists MJaycob 682.0 696.0 311 Office Visit 01/07/2010 12:45a [facility], Moises Lopez, 04069 682.0 Hospitalists MKaylinDKaylin 696.0 311 724.5 Office Visit 01/06/2010 12:45a [facility], Moises Lopez, 67591 682.0 Hospitalists M.DKaylin 696.0 311 724.5 Office Visit 01/05/2010 12:15a [facility], Brenden Garrett 71504 682.0 Hospitalists M.D. Office Visit 01/04/2010 12:30a [facility], Brenden Garrett, 09415 682.0 Hospitalists M.D. Office Visit 01/03/2010 1:15a [facility], Krystin Mike, 65105 682.0 Hospitalists MJaycob Plan of Care Future Appointment(s):08/23/2017 1:30 pm - Anne Schwab M.D. at [facility] Of [facility]01/19/2018 1:00 pm - Roque Acevedo M.D. at [facility]10/12/2017 2:00 pm - Roque Acevedo M.D. at [facility]08/13/2017 - Anne Schwab M.D.M25.561 Pain in right kneeM25.562 Pain in left kneeM17.0 Bilateral primary osteoarthritis of kneeM25.462 Effusion, left kneeM25.461 Effusion, right knee
--- OUTSIDE RECORDS SUMMARY | 2017-08-21 16:09 | XMS REPORT ---
:1950 External Reference #:[id number] Author Organization [employer] Address [address] [address] Phone [phone] Care Team Providers Name Role Phone Soni Peter MD Primary Care Physician Unavailable Payers Type Date Identification Numbers Payment Provider Subscriber Medicare Primary Effective: Policy Number: Medicare Mckayla Amaya 2001 [id number] [place] PayID: [id number] [address] [place] [address] Medigap Part B Policy Number: [id number] BS Jose Amaya [place] PayID: [id number] [address] [address] JAYASHREE Manzo [address] Medisleepy eye Part B Effective: Policy Number: BS Jose Amaya 2011 [id number] [place] Expires: 2017 PayID: [id number] [address] [address] AnaisJAYASHREE rooney [address] Problems Date Description Provider Status Onset: 08/01/2014 [...] 02/17/2017 Insomnia Sybil Robert DNP, RN, Active [employer]-BC Onset: 02/17/2017 Periodic limb movement disorder Sybil Robert DNP, RN, Active [employer]BC Onset: 02/17/2017 Dyspnea Sybil Robert DNP, RN, Active [employer]OX [employer]KER-BC Onset: 02/17/2017 Hypersomnia Sybil Robert DNP, RN, Active [employer]OX [employer]KER-BC Family History Date Family Member(s) Problem(s) Comments General heart disease father's side - 01/01 siblings of CAD General Arthritis Father Coronary Artery Disease (CAD) Father due to CAD () - at age 52 Mother due to Natural Causes () - at age 93 Siblings None Social History Type Date Description Comments Marital Status Lives With Alone 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 2016 s a day as [place], needed for M.D. headache. max 2 days/wk Topiramate 12/28/ Active Tablets 100mg 45tab 1 and 1/2 Roque S. 2016 s by mouth Curtis, every day M.D. [...] 90cap 1 po bid Unknown 0000 s [place] 3 / Active Capsules 1000mg 30cap 1 [...] botox Unknown 0000 Rec therapy. Zyrtec Allergy / Active Capsules 10mg 1 by mouth Unknown [...] Tablets 25mg 30tab 1 po q8h Roque S. HCL 2015 - prn nausea Curtis, 11/24/ M.D. 2016 Voltaren 10/24/ Hx Gel 1% 5tube apply to 2014 - s affected Jignesh, 01/20/ area qid M.D. 2014 prn Pennsaid 10/24/ Hx Solution 1.5% 1bott use on 2014 affected Jignesh, 12/18/ joint as M.D. 2017 needed twice a day Topiramate 01/10/ Hx Tablets 25mg 90tab 4 tabs po Roque SKaylin 2013 - qhs Curtis, 12/28/ M.D. 2016 Imitrex 01/11/ Hx Tablets 100mg 10tab 1 twice a Roque S. 2012 - day as Curtis, 03/02/ needed M.D. 2017 headache max 2 d/wk Celebrex 12/08/ Hx Capsules 200mg 60cap 1 po bid Rafael 2010 Lucina, 01/11/ M.DKaylin 2012 Voltaren 12/08/ Hx Gel 1% 5tube apply to Rafael 2011 - s affected Endo, qid M.D. 2012 prn Flector 12/08/ Hx Patches 1.3% 60uni topical Rafael 2010 - twice a day Endo, M.D. 2012 Levoxyl 00/00/ Hx Tablets 100mcg 90tab 1 po qd Unknown 0000 - s 2013 Sumatriptan 00/00/ Hx Tablets 100mg 1 tablet Unknown Succinate 0000 - every 2 01/11/ hourly 2013 unitl relief. maximum 4 tablets daily Trazodone HCL 00/00/ Hx Tablets 50mg 90tab 1 tablet at Unknown 0000 - s bedtime as 2013 Zolpidem 00/00/ Hx Tablets ER 1 tab po Unknown Tartrate ER 0000 - prn 2015 Claritin /00/ Hx Tablets 10mg 30tab 1 po qd prn Unknown 0000 - s 2012 Bupropion HCL 00/00/ Hx Tablets ER 300mg 30tab 1 po qd Unknown XL 0000 - 24HR s 2015 Lipitor 00/00/ Hx Tablets 10mg 90tab 1 po qhs Unknown 0000 - s 2015 Topiramate 00/00/ Hx Tablets 100mg 60tab 1 po qhs [facility] Curtis, 01/10/ M.D. 2013 Fluoxetine HCL 00/00/ Hx Capsules 20mg 90cap 1 po qd Unknown 0000 - s 2015 MS Contin /00/ Hx Tablets ER 15mg 40tab 1 po bid Unknown 0000 - 12HR s 2012 Calcium 600 + D 00/00/ Hx Tablets 600-400mg 60tab 1 po bid Unknown 0000 - -Unit s 2015 Kiana /00/ Hx Caps ER 10mg 1 tabs bid Unknown 0000 - 24HR po 2016 Morphine 00/00/ Hx Tablets 20mg 1 tab prn Unknown Sulfate 0000 - pain 2015 Prozac 00/00/ Hx Capsules 20mg 1 po qd Unknown 0000 - 2012 Amitiza 00/00/ Hx Capsules 24mcg take 1 Unknown 0000 - capsule 02/16/ 2016 [place] Thyroid 00/00/ Hx Tablets 90mg 1 PO qd Unknown 0000 - 2015 Nasonex 00/00/ Hx Suspension 50mcg/Act 1Mon 1 spray emory [...] Form Strength Qnty SIG Indications Ordering Provider Injection 07/06 Administered Injection oRque Colón Onabotulinumtoxin /2016 Jose Luis Acevedo 1 Unit MKaylinDKaylin Depomedrol 40MG 02/26 Administered Injection Anne Jevon Schwab Depomedrol 40MG 11/20 Administered Injection Anne /2016 Jevon Schwab Depomedrol 40MG 11/20 Administered Injection Anne /2016 Jevon Schwab Depomedrol 40MG 08/14 Administered Injection Anne /2016 Jevon Schwab Depomedrol 40MG 07/01 Administered Injection Anne /2015 Jevon Schwab Injection 06/12 Administered Injection Erica Onabotulinumtoxin /2015 Jose Luis Crane, 1 Unit BUSINESS PROCESS CONSULTANT Hyaluron Or 05/15 Administered Injection Anne Derivative,Ortho gay Schwab,For M.D. Intra-Articular Inj Per Dose Hyaluron Or 05/15 Administered Injection Anne Derivative,Ortho gay Schwab,For M.D. Intra-Articular Inj Per Dose Hyaluron Or 05/06 Administered Injection Anne Derivative,Ortho gay Schwab,For M.D. Intra-Articular Inj Per Dose Hyaluron Or 05/06 Administered Injection Anne Derivative, gay Schwab,For M.D. Intra-Articular Inj Per Dose Hyaluron Or 04/30 Administered Injection Zaneb Derivative, gay Sharpe,For Intra-Articular Inj Per Dose Hyaluron [...] 05/07 Administered Injection Roque S. Onabotulinumtoxin /2014 Curtis A, 1 Unit M.D. Hyaluron Or 04/23 Administered Injection Vinicius Derivative,Orthovi gay Egan,For M.D. Intra-Articular Inj Per Dose Hyaluron Or 04/16 Administered Injection Vinicius Derivative,Orthovi gay Egan,For M.D. Intra-Articular Inj Per Dose Hyaluron Or 04/09 Administered Injection Vinicius Derivative,Orthovi gay Egan,For M.D. Intra-Articular Inj Per Dose Injection 01/22 Administered Injection Roque S. Onabotulinumtoxin /2014 Jose Luis Acevedo, 1 Unit M.D. Depomedrol 80MG 12/06 Administered Injection Vinicius Jevon Egan Depomedrol 80MG 11/15 Administered Injection Vinicius Jevon Egan Injection 10/16 Administered Injection Roque S. Onabotulinumtoxin /2014 Curtis, A, 1 Unit M.D. Injection 08/01 Administered Injection Roque S. Onabotulinumtoxin /2014 [place], A, 1 Unit M.D. Hyaluron Or 06/12 Administered Injection Vinicius Derivative,Ortho Jignesh, sc,For M.D. Intra-Articular Inj Per Dose Hyaluron Or 06/12 Administered Injection Vinicius Derivative,Orthovi Jignesh, sc,For M.D. Intra-Articular Inj Per Dose Hyaluron Or 06/05 Administered Injection Judi Derivative,Ortho Moises, sc,For RPA-C Intra-Articular Inj Per Dose Hyaluron Or 06/05 Administered Injection Judi Derivative,Orthovi Moises sc,For RPA-C Intra-Articular Inj Per Dose Hyaluron Or 06/05 Administered Injection Vinicius Derivative,Ortho Jignesh sc,For M.D. Intra-Articular Inj Per Dose Hyaluron Or 06/05 Administered Injection Vinicius Derivative,Ortho Jignesh sc,For M.D. Intra-Articular Inj Per Dose Hyaluron Or 05/29 Administered Injection Vinicius Derivative,Ortho Jignesh sc,For M.D. Intra-Articular Inj Per Dose Hyaluron Or 05/29 Administered Injection Vinicius Derivative,Ortho Jignesh sc,For M.D. Intra-Articular Inj Per Dose Injection 04/17 Administered Injection Roque S. Onabotulinumtoxin Curtis A, 1 Unit M.D. Injection 04/17 Administered Injection Roque S. Onabotulinumtoxin /2013 Curtis A, 1 Unit M.D. Injection 04/17 Administered Injection Roque S. Onabotulinumtoxin /2013 [place], A, 1 Unit M.D. Injection 01/10 Administered Injection Roque S. Onabotulinumtoxin /2013 [place], A, 1 Unit M.D. Injection 01/10 Administered Injection Roque S. Onabotulinumtoxin /2013 [place], A, 1 Unit M.D. Injection 10/10 Administered Injection Roque S. Onabotulinumtoxin /2013 Curtis, A, 1 Unit M.D. Injection 10/10 Administered Injection Roque S. Onabotulinumtoxin /2013 Curtis A, 1 Unit M.D. Injection 07/11 Administered Injection Roque S. Onabotulinumtoxin Curtis A, 1 Unit M.D. Injection 07/11 Administered Injection Roque S. Onabotulinumtoxin Curtis A, 1 Unit M.D. Injection 04/18 Administered Injection Roque S. Onabotulinumtoxin /2012 Curtis A, 1 Unit M.D. Injection 01/11 Administered Injection Roque S. Onabotulinumtoxin Curtis A, 1 Unit M.D. Injection 01/11 Administered Injection Roque S. Onabotulinumtoxin Curtis A, 1 Unit M.D. Injection 01/11 Administered Injection Roque S. Onabotulinumtoxin /2012 Jose Luis Acevedo, 1 Unit M.D. Hyaluron Or 01/05 Administered Injection Terra Derivative, gay Bundy,For RPA-C Intra-Articular Inj Per Dose Hyaluron Or 12/29 Administered Injection Vinicius Derivative,Ortho gay Egan,For M.D. Intra-Articular Inj Per Dose Hyaluron Or 12/29 Administered Injection Vinicius Derivative,Ortho gay Egan,For M.D. Intra-Articular Inj Per Dose Hyaluron Or 12/29 Administered Injection Vinicius Derivative,Ortho gay Egan,For M.D. Intra-Articular Inj Per Dose Hyaluron Or 12/22 Administered Injection Vinicius Derivative,Ortho gay Egan,For M.D. Intra-Articular Inj Per Dose Hyaluron Or 12/22 Administered Injection Vinicius Derivative,Ortho gay Egan,For M.D. Intra-Articular Inj Per Dose Hyaluron Or 12/15 Administered Injection Vinicius Derivative,Ortho gay Egan,For M.D. Intra-Articular Inj Per Dose Injection 10/11 Administered Injection Roque S. Onabotulinumtoxin Jose Luis Acevedo, 1 Unit M.D. Injection 10/11 Administered Injection Roque S. Onabotulinumtoxin Jose Luis Acevedo, 1 Unit M.D. Depomedrol 80MG 09/27 Administered Injection Vinicius Jevon Egan Injection 07/12 Administered Injection Roque S. Onabotulinumtoxin Jose Luis Acevedo, 1 Unit M.D. Injection 07/12 Administered Injection Roque S. Onabotulinumtoxin /2011 Jose Luis Acevedo 1 Unit M.DKaylin Celestone 3 mg and 05/20 Administered Injection Melodie 3mg /2011 Ondina agee M.D. Celestone 3 mg and 05/20 Administered Injection Melodie 3mg /2011 Ondina agee M.D. Injection 04/05 Administered Injection Roque S. Onabotulinumtoxin /2011 Jose Luis Acevedo 1 Unit M.DKaylin Injection 04/05 Administered Injection Roque S. Onabotulinumtoxin /2011 Jose Luis Acevedo, 1 Unit M.D. Immunizations CPT Code Status Date Vaccine Lot # [id number] Given 04/28/2016 Influenza Virus 3Yrs & Over Vital Signs Date Vital Result Comment 08/06/2017 Height 61.75 inches 5'1.75" Weight 129.00 [...] Color Straw Urine Appearance Clear Urine Specific [place] 1.006 Low 1.010-1.030 Urine pH 5.0 5-9 Urine Urobilinogen Negative Negative Urine Ketones Negative Negative Urine Protein Negative Negative Urine Leukocytes Negative Negative Urine Blood Negative Negative Urine Nitrite Negative Negative Urine Bilirubin Negative Negative Urine Glucose Negative Negative 1 Normal Range 180 to 914 Indeterminate Range 145 to 180 Deficient Range <145 2 Acute inflammation: >10.00 3 Test Performed by: [place] [address] Fishing Gear Mechanic: Cosmo Arriola II, M.D., Ph.D. 4 REFERENCE VALUE <20.0 (Negative) Test Performed by: [place] [address] Fishing Gear Mechanic: Cosmo Arriola II, M.D., Ph.D. 5 this [...] medium resolution molecular values. Performing Laboratory CLIA# [id number] Test Performed by: [place] [address] Fishing Gear Mechanic: Cosmo Arriola II, M.D., Ph.D. 9 Test Performed by: [place] [address] Fishing Gear Mechanic: Cosmo Arriola II, M.D., Ph.D. 10 REFERENCE VALUE <4.0 (Negative) Test Performed by: [place] [address] Fishing Gear Mechanic: Cosmo Arriola II, M.D., Ph.D. 11 Negative serology. Celiac disease unlikely. However, approximately 10% of patients with celiac disease are seronegative. Also, patients who are already adhering to a gluten-free diet may be seronegative. If celiac disease is highly clinically suspected, consider HLA-DQ typing. Test Performed by: [place] [address] Fishing Gear Mechanic: Cosmo Arriola II, M.D., Ph.D. 12 REFERENCE VALUE <20.0 (Negative) Test Performed by: [place] [address] Fishing Gear Mechanic: Cosmo Arriola II, M.D., Ph.D. 13 REFERENCE VALUE Not Applicable 14 RESULT: HLA-B27 antigen was not detected. ADDITIONAL INFORMATION Method: Flow Cytometry Performing Laboratory CLIA# [id number] Test Performed by: [place] [address] Fishing Gear Mechanic: Cosmo Arriola II, M.D., Ph.D. 15 REFERENCE VALUE <1.0 (Negative) Test Performed by: [place] [address] Fishing Gear Mechanic: Cosmo Arriola II, M.D., Ph.D. 16 REFERENCE VALUE <1.0 (Negative) Test Performed by: [place] [address] Fishing Gear Mechanic: Cosmo Arriola II, M.D., Ph.D. 17 Serologic response to B. burgdorferi infection is not detected, but cannot rule out early infection during which low or undetectable antibody levels to B. burgdorferi may be present. If clinically indicated, a new serum specimen should be submitted in 7-14 days. Test Performed by: [place] [address] Fishing Gear Mechanic: Cosmo Arriola II, M.D., Ph.D. 18 REFERENCE VALUE <1.0 (Negative) Test Performed by: [place] [address] Fishing Gear Mechanic: Cosmo Arriola II, M.D., Ph.D. 19 REFERENCE VALUE Not Applicable 20 RESULT: HLA-B27 antigen was not detected. ADDITIONAL INFORMATION Method: Flow Cytometry Performing Laboratory [facility]# [id number] Test Performed by: [place] [address] Fishing Gear Mechanic: Cosmo Arriola II, M.D., Ph.D. 21 Serologic response to B. burgdorferi infection is not detected, but cannot rule out early infection during which low or undetectable antibody levels to B. burgdorferi may be present. If clinically indicated, a new serum specimen should be submitted in 7-14 days. Test Performed by: [place] [address] Fishing Gear Mechanic: Cosmo Arriola II, M.D., Ph.D. 22 Test Performed by: [place] [address] Fishing Gear Mechanic: Cosmo Arriola II, M.D., Ph.D. 23 this please this please Test Performed by: [place] [address] Fishing Gear Mechanic: Cosmo Arriola II, M.D., Ph.D. 26 REFERENCE VALUE <4.0 (Negative) Test Performed by: [place] [address] Fishing Gear Mechanic: Cosmo Arriola II, M.D., Ph.D. 27 Negative serology. Celiac disease unlikely. However, approximately 10% of patients with celiac disease are seronegative. Also, patients who are already adhering to a gluten-free diet may be seronegative. If celiac disease is highly clinically suspected, consider HLA-DQ typing. Test Performed by: [place] [address] Fishing Gear Mechanic: Cosmo Arriola II, M.D., Ph.D. 28 RESULT: [...] medium resolution molecular values. Performing Laboratory CLIA# [id number] Test Performed by: [place] [address] Fishing Gear Mechanic: Cosmo Arriola II, M.D., Ph.D. 31 REFERENCE VALUE <1.0 (Negative) Test Performed by: [place] [address] Fishing Gear Mechanic: Cosmo Arriola II, M.D., Ph.D. 32 REFERENCE VALUE <1.0 (Negative) Test Performed by: [place] [address] Fishing Gear Mechanic: Cosmo Arriola II, M.D., Ph.D. 33 REFERENCE VALUE <1.0 (Negative) Test Performed by: [facility] [address] [place] [address] Fishing Gear Mechanic: Cosmo Arriola II, M.D., Ph.D. 34 this week please 35 this week please 36 Acute inflammation: >10.00 37 this week please 38 this week please 39 this week please 40 Test Performed by: [facility] [address] [place] [address] Fishing Gear Mechanic: Cosmo Arriola II, M.D., Ph.D. 41 Test Performed by: [facility] [address] [place] [address] Fishing Gear Mechanic: Cosmo Arriola II, M.D., Ph.D. 42 Normal [...] Procedures Date CPT Code Description Status Comment 08/06/2017 57077 Inject/Drain Joint/Bursa Major Completed 07/06/2017 46471 Chemodenervation Of Muscles Innervated By Completed Facial Nerves, Bilat 02/26/2017 Inject/Drain Joint/Bursa Major Completed 11/20/2016 Inject/Drain Joint/Bursa Major Completed 11/20/2016 Inject/Drain Joint/Bursa Major Completed 08/14/2016 Inject/Drain Joint/Bursa Major Completed 07/01/2016 Inject/Drain Joint/Bursa Major Completed 06/12/2016 97237 Chemodenervation Of Muscles Innervated By Completed Facial Nerves, Bilat 05/15/2016 Inject/Drain Joint/Bursa Major Completed 05/06/2016 Inject/Drain Joint/Bursa Major Completed 04/30/2016 Inject/Drain Joint/Bursa Major Completed 03/11/2016 40880 Chemodenervation Of Muscles Innervated By Completed Facial Nerves, Bilat 01/17/2016 99795 Closed TRTMT Clavicular Fracture Completed 12/16/2015 76523 EKG Tracing & Interpretation Completed 11/26/2015 61854 Chemodenervation Of Muscles Innervated By Completed Facial Nerves, Bilat 10/22/201593730 Inject/Drain Joint/Bursa Major Completed 08/21/2015 02168 Chemodenervation Of Muscles Innervated By Completed Facial Nerves, Bilat 07/15/201533744 Inject/Drain Joint/Bursa Major Completed 05/07/2015 85599 Chemodenervation Of Muscles Innervated By Completed Facial Nerves, Bilat 04/23/201563603 Inject/Drain Joint/Bursa Major Completed 04/16/2015 Inject/Drain Joint/Bursa Major Completed 04/09/2015 Inject/Drain Joint/Bursa Major Completed 01/22/2015 78349 Chemodenervation Of Muscles Innervated By Completed Facial Nerves, Bilat 12/06/201424871 Inject/Drain Joint/Bursa Major Completed 11/15/2014 Inject/Drain Joint/Bursa Major Completed 10/16/2014 43373 Chemodenervation Of Muscles Innervated By Completed Facial Nerves, Bilat 08/01/2014 13203 Chemodenervation Of Muscles Innervated By Completed Facial Nerves, Bilat 06/12/201431091 Inject/Drain Joint/Bursa Major Completed 06/05/2014 Inject/Drain Joint/Bursa Major Completed 06/05/2014 Inject/Drain Joint/Bursa Major Completed 06/05/2014 72418 Inject/Drain Joint/Bursa Major Completed 05/29/2014 23622 Inject/Drain Joint/Bursa Major Completed RT 04/17/2014 75223 Chemodenervation Of Muscles Innervated By Completed Facial Nerves, Bilat 01/23/2014 40401 Xray Knee 3 Views Completed 01/23/2014 35520 Rad Exam; Knee, Ap&L Completed 01/10/2014 30222 Chemodenervation Of Muscles Innervated By Completed Facial Nerves, Bilat 10/10/2013 84258 Chemodenervation Of Muscles Innervated By Completed Facial Nerves, Bilat 07/11/2013 86725 Chemodenervation Of Muscles Innervated By Completed Facial Nerves, Bilat 04/18/2013 63410 Chemodenervation Of Muscles Innervated By Completed Facial Nerves, Bilat 01/11/2013 87206 Chemodenervation Of Muscles Innervated By Completed Facial Nerves, Bilat 01/05/2013 26535 Inject/Drain Joint/Bursa Major Completed 12/29/201222981 Inject/Drain Joint/Bursa Major Completed 12/29/2012 81408 Inject/Drain Joint/Bursa Major Completed 12/22/2012 04405 Inject/Drain Joint/Bursa Major Completed 12/22/2012 46292 Inject/Drain Joint/Bursa Major Completed 12/15/2012 15941 Inject/Drain Joint/Bursa Major Completed 10/11/2012 27537 Chemodenervation Of Muscles Innervated By Completed Facial Nerves, Bilat 09/27/2012 47414 Xray Knee 3 Views Completed 09/27/2012 21434 Xray Knee 3 Views Completed 09/27/2012 60291 Rad Exam; Knee, Ap&L Completed 09/27/2012 23385 Rad Exam; Knee, Ap&L Completed 09/27/2012 63772 Inject/Drain Joint/Bursa Major Completed 09/06/2012 26117 Excision Tendon Sheath Ganglion /Or Joint Completed Capsule Hand Or Finger 09/06/2012 11173 Excision Tendon Sheath Ganglion /Or Joint Completed Capsule Hand Or Finger 09/06/201253511 Inject/Drain Joint/Bursa Small Completed 07/12/2012 27069 Destruction W/Neurolytic Agent,Neck Muscles Completed 07/12/2012 95669 Destruction W/Neurolytic Agent, Facial Nerve Completed Muscle, Unilateral 05/20/2012 62085 Rad Exam; Fingers Completed 05/20/201227242 Inject/Drain Joint/Bursa Small Completed 04/05/2012 19543 Destruction W/Neurolytic Agent,Neck Muscles Completed 04/05/2012 11469 Destruction W/Neurolytic Agent, Facial Nerve Completed Muscle, Unilateral Encounters Type Date Location Provider CPT E/M Dx Office Visit 07/05/2017 [facility] Anne Schwab M.D. 39212 M25.561 11:30a [facility] M25.562 M25.461 M25.462 M17.0 Office Visit 05/06/2017 1:00p [facility] Jayme Hernandez, 61384 L40.50 Of [place] Escoto Z79.899 M19.049 G89.4 Office Visit 04/12/2017 10:45a [facility] Of Anne Schwab M.D. 53670 M25.562 [facility] M17.12 W19.xxxA Office Visit 02/26/2017 1:30p [facility] Of Anne Schwab M.D. 04352 M25.562 [facility] M25.462 M17.12 M25.552 M70.62 M25.511 M70.61 Office Visit 02/17/2017 11:15a [facility] Sybil Robert, 70288 G89.4 Services Of [facility] HARRINGTON RN, [facility]- G47.61 G47.63 G47.00 G47.10 R06.83 R06.81 Office Visit 12/28/2016 3:30p [facility] Roque Acevedo, 98016 G43.019 Services Of [place] Escoto Office Visit 11/20/2016 9:15a [facility] Anne Schwab M.D. 56379 M25.562 [facility] M25.462 M17.12 M25.552 M70.62 Office Visit 06/24/2016 10:00a [facility] Of Anne Schwab M.D. 69901 M79.1 [facility] Office Visit 04/07/2016 2:00p [facility] [address] M75.51 [facility] M17.0 Office Visit 02/19/2016 3:20p [facility] Of Jayme Hernandez, 82491 M06.4 After School Program Director M.D. M70.62 L30.9 M17.0 Office Visit 12/16/2015 2:00p [facility] Lorenzo Peters, 23444 R00.2 M.D. R55 R06.02 R94.31 E78.4 R53.83 Office Visit 11/05/2015 1:00p [facility] Of Jayme Hernandez, 72058 M06.4 After School Program Director M.D. M89.8x4 M70.62 M17.0 L13.0 M35.01 Office Visit 10/29/2015 3:20p [facility] Of Yanna Cabreramaicol, 47151 M70.61 [facility] RPA-C M70.62 M76.32 Office Visit 10/22/2015 2:30p [facility] Of Yannasyed Grewal, 69128 M70.61 [facility] RPA-C M70.62 M76.32 Office Visit 08/21/2015 3:00p [facility] Roque Acevedo, 71036 G43.019 Services Of Destini M.Kong Office Visit 07/15/2015 10:00a [place] [address] M70.61 Of [facility] M70.62 Office Visit 02/28/2015 9:40a [facility] Of Vinicius Egan M.D. 51873 715.16 [facility] 844.9 Office Visit 02/19/2015 10:30a [facility] Of Yanna Grewal, 95848 717.40 [facility] RPA-C Office Visit 11/15/2014 9:15a [facility] Of Vinicius Egan M.D. 65606 726.5 [facility] Office Visit 01/23/2014 10:30a [facility] Of Vinicius Egan M.D. 64944 715.16 [facility] Office Visit 04/18/2013 2:00p [facility] Roque Acevedo, 35634 346.11 Services Of Destini M.DKaylin Office Visit 03/08/2013 10:00a [facility] Of Melodie 97270 715.94 C.M.AKaylin Sanchez M.D. Office Visit 02/24/2013 2:30p [facility] Of Vinicius Egan M.D. 25413 716.96 [facility] Office Visit 02/07/2013 10:15a [facility] Of Melodie 40418 727.40 C.M.AKaylin Sanchez M.D. Office Visit 01/11/2013 2:00p [facility] Roque Acevedo 88013 346.11 Services Of Destini Escoto Office Visit 01/05/2013 11:30a [facility] Of RUKHSANA Bangura 71427 716.96 C.M.AKaylin 715.36 Office Visit 12/15/2012 2:00p [facility] Of Vinicius Egan M.D. 35434 715.36 [facility] Office Visit 11/15/2012 2:30p [facility] Of Vinicius Egan M.D. 74756 715.36 [facility] Office Visit 10/11/2012 3:00p [facility]z Acevedo 87024 346.11 Services Of Destini Escoto Office Visit 09/27/2012 9:15a [facility] Of Vinicius Egan M.D. 56949 715.36 [facility] Office Visit 09/18/2012 9:03a [facility], Roque Parra 67001 578.9 Hospitalists Jevon Adams 787.91 780.2 Office Visit 09/16/2012 9:00a [facility], Yocasta Bradshaw N.P. 33740 578.9 Hospitalists 787.91 780.2 Office Visit 07/12/2012 3:00p [facility] Roque Acevedo 91643 346.11 Services Of Destini M.Kong Office Visit 05/20/2012 8:00a [facility] Of Mel[place]ie 37688 715.94 C.M.AKaylin Sanchez M.D. Office Visit 12/08/2010 2:20p Rheumatology Services Rafael Verdugo 93684 719.40 Of [place] Escoto 782.8 795.79 721.0 721.3 729.1 Office Visit 01/08/2010 12:15a [facility],pc Moises Lopez, 72040 527.2 Hospitalists M.D. 682.0 696.0 311 Office Visit 01/07/2010 12:45a [facility] Moises Lopez, 12618 682.0 Hospitalists M.D. 696.0 311 724.5 Office Visit 01/06/2010 12:45a [facility] Moises Lopez, 54010 682.0 Hospitalists M.D. 696.0 311 724.5 Office Visit 01/05/2010 12:15a [facility] Bernden Garrett, 19134 682.0 Hospitalists M.D. Office Visit 01/04/2010 12:30a [facility] Brenden Garrett, 83107 682.0 Hospitalists M.D. Office Visit 01/03/2010 1:15a [facility], [place], 85588 682.0 Hospitalists M.D. Plan of Care Future Appointment(s):08/23/2017 1:30 pm - Anne Schwab M.D. at [facility]08/13/2017 1:45 pm - Anne Schwab M.D. at [facility]01/19/2018 1:00 pm - Roque Acevedo M.D. at [facility] [facility] - [facility]10/12/2017 2:00 pm - Roque Acevedo M.D. at [facility]08/06/2017 - Anne Schwab M.D.M25.561 Pain in right kneeFollow up:Follow up: 1 weekM25.562 Pain in left kneeM25.461 Effusion , right kneeM25.462 Effusion, left kneeM17.0 Bilateral primary osteoarthritis of knee
--- NOTE | 2017-08-21 17:08 | RAD ---
HISTORY: Head injury COMPARISONS: April 07, 2017 TECHNIQUE: Multiple contiguous axial CT scans were obtained of the head without intravenous contrast. FINDINGS: HEMORRHAGE/INFARCT: There is no hemorrhage or acute infarct. MASSES/SHIFT: There is no mass or shift. EXTRA-AXIAL SPACES: There are no extra-axial fluid collections. SULCI AND VENTRICLES: The sulci and ventricles are normal in size and position for the patient's stated age. CEREBRUM: There are no focal parenchymal abnormalities. BRAINSTEM: There are no focal parenchymal abnormalities. CEREBELLUM: There are no focal parenchymal abnormalities. VESSELS: The vessels are grossly normal. PARANASAL SINUSES: The paranasal sinuses are clear. ORBITS: The orbits are unremarkable. BONES AND SOFT TISSUE: No bone or soft tissue abnormalities are noted. OTHER: None IMPRESSION: NO ACUTE INTRACRANIAL PATHOLOGY.
--- NOTE | 2017-08-21 17:13 | RAD ---
HISTORY: Head injury COMPARISONS: January 03, 2010 TECHNIQUE: Multiple contiguous axial CT scans were obtained of the face without intravenous contrast, with coronal and sagittal multiplanar reformations. FINDINGS: BONES: There is a nondisplaced fracture of the right nasal bone that appears chronic compared to 2010 examination. There is no acute displaced fracture.. The orbital rim is intact. The zygomatic arch is intact. The pterygoid plates are intact. Degenerative changes are noted of the cervical spine ORBITS: The globes are round. The optic nerves are symmetric. The extraocular musculature is normal. There is no post septal or intraconal inflammatory change. There is no retrobulbar hematoma. PARANASAL SINUSES: The paranasal sinuses are clear. BRAIN AND SOFT TISSUE: Unremarkable. OTHER: None. IMPRESSION: NO ACUTE FACIAL FRACTURE
[2017-08-21 17:55] VITALS: BP 123/105
--- NOTE | 2017-08-21 19:48 | ED ---
Ismael Whiting Stephanie, scribed for Kal Fiore on 08/21/17 at 1616 . Laceration/Wound HPI - HPI Summary HPI Summary: The pt is a 67 y/o F presenting to the ED with c/o 1 cm head laceration that occurred s/p fall at 15:20 today. Symptoms include abrasions over knees bilaterally. The pt denies LOC. The pt is not on blood thinners. - History of Current Complaint Stated Complaint: HEAD INJURY Time Seen by Provider: 08/21/17 15:47 Hx Obtained From: Patient Onset/Duration: Sudden Onset, Lasting Hours - 1, Still Present Current Severity: Mild Pain Intensity: 4 Pain Scale Used: 0-10 Numeric Associated Signs & Symptoms: Pain - Allergy/Home Medications Allergies/Adverse Reactions: Allergies Allergy/AdvReac Type Severity Reaction Status Date / Time Cefaclor [From Ceclor] Allergy Diarrhea Verified 07/29/17 13:27 CI Pigment Blue 63 Allergy Diarrhea Verified 07/29/17 13:27 [From Cymbalta] Clindamycin Allergy Diarrhea Verified 07/29/17 13:27 Desvenlafaxine [From Pristiq] Allergy Unknown Verified 07/29/17 13:27 Reaction Details Duloxetine [From Cymbalta] Allergy Diarrhea Verified 07/29/17 13:27 Pregabalin [From Lyrica] Allergy Unknown Verified 07/29/17 13:27 Reaction Details Amoxicillin [From Augmentin] AdvReac Intermediate Nausea Verified 07/29/17 13:27 Clavulanic Acid AdvReac Intermediate Nausea Verified 07/29/17 13:27 [From Augmentin] PMH/Surg Hx/FS Hx/Imm Hx Endocrine/Hematology History: Reports: Hx Thyroid Disease, Hx Unexplained Bleeding - Currently Denies: Hx Anticoagulant Therapy, Hx Blood Disorders, Hx Blood Transfusions, Hx Bone Marrow Disease, Hx Diabetes, Hx Systemic Lupus Erythematosus, Hx Sickle Cell Disease, Hx Anemia, Other Endocrine/Hematological Disorders Cardiovascular History: Denies: Hx Hypercholesterolemia, Hx Hypertension, Hx Pacemaker/ICD Respiratory History: Reports: Hx Seasonal Allergies Denies: Hx Asthma, Hx Chronic Bronchitis, Hx Chronic Obstructive Pulmonary Disease (COPD), Hx Cystic Fibrosis, Hx Lung Cancer, Hx Pleural Effusion, Hx Pneumonia, Hx Pulmonary Edema, Hx Pulmonary Embolism, Hx Sleep Apnea, Other Respiratory Problems/Disorders GI History: Reports: Hx Gastrointestinal Bleed - currently; reason for admission , Other GI Disorders - Occasional severe constipation Denies: Hx Cirrhosis, Hx Crohn's Disease, Hx Diverticulosis, Hx Gall Bladder Disease, Hx Gastroesophageal Reflux Disease, Hx Hiatal Hernia, Hx Irritable Bowel, Hx Jaundice, Hx Obstructive Bowel, Hx Ileostomy, Hx Pyloric Stenosis, Hx Ulcer History: Denies: Hx Acute Renal Failure, Hx Benign Prostatic Hyperplasia, Hx Chronic Renal Failure, Hx Dialysis, Hx Kidney Stones, Hx Renal Disease, Other Problems/Disorders Comment Only: Hx Kidney Infection - Possibly while in college more than 40 years ago. Musculoskeletal History: Reports: Hx Arthritis, Hx Rheumatoid Arthritis, Hx Back Problems - congenital spinal stenosis, Hx Bursitis, Hx Fibromyalgia, Hx Orthopedic Injury - right rotator cuff tear, Hx Scoliosis - mild, Hx Tendonitis - hands and feet, Other Musculoskeletal History - chronic pain, finger joints replaced, thumbs fused, mallet finger release. Denies: Hx Congenital Bone Abnormalities, Hx Gout, Hx Osteoporosis Sensory History: Reports: Hx Cataracts - developing, Hx Contacts or Glasses, Hx Hearing Aid, Hx Hearing Problem Denies: Hx Eye Injury, Hx Eye Prosthesis, Hx Glaucoma, Hx Macular Degeneration, Hx Vision Problem, Hx Deafness, Other Sensory Impairments Opthamlomology History: Reports: Hx Cataracts - developing, Hx Contacts or Glasses Denies: Hx Eye Injury, Hx Eye Prosthesis, Hx Glaucoma, Hx Macular Degeneration, Hx Vision Problem, Other Sensory Impairments Neurological History: Reports: Hx Headaches, Hx Migraine Denies: Hx Dementia, Hx Developmental Delay, Hx Seizures, Hx Spinal Cord Injury, Hx Transient Ischemic Attacks (TIA), Other Neuro Impairments/Disorders Psychiatric History: Reports: Hx Anxiety, Hx Depression Denies: Hx Attention Deficit Hyperactivity Disorder, Hx Eating Disorder, Hx Panic Disorder, Hx Post Traumatic Stress Disorder, Hx Inpatient Treatment, Hx Community Mental Health Tx, Hx Schizophrenia, Hx Bipolar Disorder, Hx Suicide Attempt, Hx Substance Abuse, Other Psychiatric Issues/Disorders - Surgical History Surgery Procedure, Year, and Place: hand/joint surgeries x 10 - [facility] REPLAC[facility]US[facility]. lumbar laminectomy - 1999 - IN [place]. toenail surguries- [facility] Hx Anesthesia Reactions: No Infectious Disease History: No Infectious Disease History: Denies: Hx Hepatitis, Hx Human Immunodeficiency Virus (HIV), Hx Tuberculosis , Traveled Outside the [place] in Last 30 Days - Family History Known Family History: Positive: Hypertension - Social History Occupation: Retired Lives: Alone Alcohol Use: None Substance Use Type: Reports: None Substance Use Comment - Amount & Last Used: morphine Smoking Status (MU): Never Smoked Tobacco Have You Smoked in the Last Year: No Review of Systems Positive: Other - Negative: LOC. Negative: Fever Positive: Other - abrasion over knees bilaterally, 1 cm lac over R forehead Negative: Syncope All Other Systems Reviewed And Are Negative: Yes Physical Exam - Summary Physical Exam Summary: Appearance: Well appearing, no pain distress Skin: warm, dry, abrasions bilateral knees. 1 cm Lac over R side of forehead. Head/face: normal Eyes: EOMI, BRIONNA ENT: normal Neck: supple, non-tender Respiratory: CTA, breath sounds present Cardiovascular: RRR, pulses symmetrical Abdomen: non-tender, soft Bowel: present Musculoskeletal: normal, strength/ROM intact Neuro: normal, sensory motor intact, A&Ox3 Triage Information Reviewed: Yes Vital Signs On Initial Exam: Initial Vitals Temp Pulse Resp BP Pulse Ox 98.2 F 96 19 132/64 93 08/21/17 15:19 08/21/17 15:19 08/21/17 15:19 08/21/17 15:19 08/21/17 15:19 Vital Signs Reviewed: Yes Procedures - Laceration/Wound Repair 1 Location: head Description: Linear Length, Depth and Shape: 1 cm Laceration/Wound Explored: clean Closure: Skin Adhesive - Dermobond Debridement: minimal Diagnostics - Vital Signs Vital Signs Temp Pulse Resp BP Pulse Ox 08/21/17 15:19 98.2 F 96 19 132/64 93 - Laboratory Lab Statement: Any lab studies that have been ordered have been reviewed, and results considered in the medical decision making process. - CT Brain CT Interpretation: No Acute Changes CT Interpretation Completed By: Radiologist - NO ACUTE INTRACRANIAL PATHOLOGY. Maxillofacial CT Interpretation: No Acute Changes CT Interpretation Completed By: Radiologist - NO ACUTE FACIAL FRACTURE Laceration Repair Course/Dx - Course Course Of Treatment: The pt is a 67 y/o F presenting to the ED with c/o 1 cm head laceration that occurred s/p fall at 15:20 today. ED physician discussed results of CT with pt. Pt agrees to discharge. - Differential Dx Differental Diagnoses: Abrasion, Hematoma, Laceration, Other - intracranial bleeding - Clinical Impression Provider Diagnoses: Head injury, Face lacerations, Abrasion of knee, bilateral Discharge - Discharge Plan Condition: Stable Disposition: HOME Patient Education Materials: Laceration (ED) Referrals: Soni Peter MD [Primary Care Provider] - 3 Days Additional Instructions: Follow up with PCP in 3 days. The documentation as recorded by the Ismael sharma Stephanie accurately reflects the service I personally performed and the decisions made by Adebayo barrett Emmanuel.
== END | disposition home or self-care (01) ==
LOC: ED 15:14
DX: S80.212A Abrasion, left knee, initial encounter (principal); S80.211A Abrasion, right knee, initial encounter; S01.81XA Laceration without foreign body of other part of head, initial encounter; W19.XXXA Unspecified fall, initial encounter; Y92.9 Unspecified place or not applicable; Z88.0 Allergy status to penicillin
CPT/HCPCS: 70450; 70486; 99282

== ENCOUNTER → 2018-10-31 10:19 | Day surgery (SDC) | payer MEDICARE, OTHER ==
[~2018-10-31 10:19] MED LIST: Bupivacaine 0.25% SDV* 30 ML ONE
[2018-10-31 12:12] VITALS: BP 114/69
--- NOTE | 2018-10-31 15:08 | OP ---
DATE OF OPERATION: 10/31/18 - [facility] DATE OF : 48 SURGEON: Gilson Nava MD ASSOCIATE FIELD SERVICE ENGINEER: None. ANESTHESIOLOGIST: None. ANESTHESIA: Local only with digital block with 0.25% plain Marcaine. PRE-OP DIAGNOSIS: Left index finger dorsal mass. POST-OP DIAGNOSIS: Left index finger dorsal mass. OPERATIVE PROCEDURE: Excision of left dorsal finger mass. INDICATIONS: Mckayla has the mass, it is bothering her, it is pretty large. We talked about risks and benefits including risks of stiffness and mass recurrence, she wanted to proceed. ESTIMATED BLOOD LOSS: 1 mL. COMPLICATIONS: None. FINDINGS: See above and below. DESCRIPTION OF PROCEDURE: Mckayla was seen in the preoperative holding area. The correct site, side, and procedure were identified. We came back to the operating room. The arm was prepped and draped in the usual fashion. I performed a digital block in the preoperative area. A time-out was performed. I made a curvilinear incision over the mass. The mass was centered over the dorsal ulnar aspect of the DIP joint. The mass was excised via marginal excision, was handed off as a specimen. I then cauterized the base of the mass with a bipolar cautery. The skin was then closed with 4-0 nylon suture and soft dressing was applied. She was taken to the recovery room in stable condition. [id number]/CPS #: [id number] MTDD
== END | disposition home or self-care (01) ==
LOC: OR 10:19
PROVIDERS: ATTEND Orthopaedic Surgery Hand Surgery
DX: M67.442 Ganglion, left hand (principal); L40.50 Arthropathic psoriasis, unspecified; E03.9 Hypothyroidism, unspecified; M79.7 Fibromyalgia
CPT/HCPCS: 88304